=== PATIENT | female | born 1960 | race Caucasian/White ===

== ENCOUNTER 2021-06-11 19:52 | Inpatient (IN) | payer OTHER, SELFPAY ==
[2021-06-11] VITALS (26 sets, daily range): BP systolic 79–125; BP diastolic 49–65; PULSE 89–102; RESP 24–37; TEMP 37.7–38.7; O2SAT 86–97
--- NOTE | ~2021-06-11 | XR_ITS ---
XR chest 1V portable DATE: 06/19/2021 05:46 INDICATION: Covid pneumonia TECHNIQUE: Portable AP chest on 06/19/2021 at 0455 hours COMPARISON: 06/15/2021 portable AP chest 06/11/2021 CTA chest FINDINGS: Heart size is normal. There are patchy diffuse bilateral pulmonary infiltrates which appear mildly improved since 06/15/2021. No pleural effusion or pneumothorax is evident. Diffuse osteopenia. IMPRESSION: Mildly improved bilateral pulmonary infiltrates since 06/15/2021 Reviewed, dictated and finalized at location A. SECURITY SPECIALIST
--- NOTE | ~2021-06-11 | XR_ITS ---
EXAMINATION: XR chest 1V portable DATE: 06/15/2021 05:47 INDICATION: COVID pneumonia TECHNIQUE: frontal view of the chest was obtained. COMPARISON: Chest radiograph dated 06/14/2021 FINDINGS: No significant interval change in patchy airspace opacities throughout both lungs. No pleural effusio n or pneumothorax. The cardiomediastinal silhouette is normal. IMPRESSION: 1. No significant change in diffuse bilateral lung disease consistent with COVID pneumonia. Reviewed, dictated and finalized at location A. SPECIAL EDUCATION TEACHER IMPRESSION: 1. No significant change in diffuse bilateral lung disease consistent with COVI D pneumonia.
--- NOTE | ~2021-06-11 | XR_ITS ---
EXAMINATION: XR chest 1V portable EXAM DATE: 06/14/2021 12:01 INDICATION: COVID-19, SOB . TECHNIQUE: Portable AP frontal chest x-ray was obtained. Comparison is made to prior examination from 06/11/2021. FINDINGS: Diffuse bilateral airspace disease with peripheral predominance, consistent with COVID pneu monia. There may be slightly more confluence compared to prior study. No pneumothorax or pleural effu gennaro. Cardiomediastinal silhouette is normal. There are no osseous abnormalities identified. IMPRESSION: Diffuse COVID pneumonia, slight interval progression. Reviewed, dictated and finalized at location A. MACY SERVICE ASSOCIATE
--- NOTE | ~2021-06-11 | XR_ITS ---
EXAMINATION: XR chest 1V portable INDICATION: Shortness of breath TECHNIQUE: Portable AP chest at 2045 hours COMPARISON: None available FINDINGS: There are patchy opacities throughout all lung zones. There is no pleural effusion or pneum othorax. The cardiomediastinal silhouette is normal. IMPRESSION: 1. Diffuse lung disease in a pattern suggestive of COVID 19 pneumonia. Reviewed, dictated and finalized at location F. GY ADVISOR
--- NOTE | ~2021-06-11 | CT_ITS ---
EXAMINATION: CTA chest PE protocol DATE: 06/12/2021 00:01 INDICATION: Dyspnea. TECHNIQUE: Computed tomography angiography (CTA) of the chest was performed with 100 mL Omnipaque-350 intravenous contrast timed to evaluate the pulmonary arteries. Coronal maximum intensity projection 3D-reconstructions were created by the technologist. Automated exposure control and iterative reconst ruction technique were employed. The dose-length product was 597.52 mGy-cm. COMPARISON: None. FINDINGS: There are patchy airspace opacities and groundglass opacities involving all lobes. A calcif ied right lung nodule and calcified right hilar lymph nodes are consistent with old granulomatous dis ease. No pleural effusion. There is left atrial enlargement of the heart. No pericardial effusion. Th ere is no pulmonary embolus. There is a small sliding hiatal hernia. Calcifications in the spleen are consistent with old granulomatous disease. There is mild thoracic spondylosis. IMPRESSION: 1. No pulmonary embolus. 2. Diffuse lung disease, consistent with COVID-19 pneumonia. Reviewed, dictated and finalized at location B. S ACCOUNT ASSOCIATE
--- NOTE | 2021-06-11 20:36 | ECG_ITS ---
Measurements Intervals [place] Rate: 95 P: 39 DE: 144 QRS: -9 QRSD: 91 T: 28 QT: 336 QTc: 423 Interpretive Statements SINUS RHYTHM MINIMAL Q WAVES- HIGH LATERAL LEADS BORDERLINE T WAVE ABNORMALITY- INFERIOR LEADS BORDERLINE ECG Electronically Signed On 06-12-2021 6:31:04 WIRE BRUSHER by Ge Richmond D.O.
[2021-06-11] MEDS: SODIUM CHLORIDE 0.9% IV 1,000 ML 999 ML IV CONT (21:12)
[2021-06-11] MEDS: ONDANSETRON INJ 4 MG/2 ML VIAL IV PUSH (21:13)
[2021-06-11 21:26] LABS: Basophils Percent Auto 0.2 % (0.2-1.2); Hematocrit 41.8 % (37.0-47.0); Hemoglobin 14.1 g/dL (12.0-15.0); Immature Granulocyte Absolute 0.09 K/mm3 (0.00-0.031); Immature Granulocyte Percent A 1.6 % (0-0.5); Lymphocytes Absolute Auto 0.62 K/mm3 (0.9-3.2); Lymphocytes Percent Auto 11.3 % (18.3-44.2); Mean Corpuscular HGB Conc 33.7 g/dl (32-36); Mean Corpuscular Hemoglobin 32.9 pg (26-34); Mean Corpuscular Volume 97.4 fl (80-100); Mean Platelet Volume 10.1 fl (7.4-10.4); Monocytes Absolute Auto 0.3 K/mm3 (0.1-0.6); Monocytes Percent Auto 4.6 % (2.6-8.5); Neutrophils Absolute Auto 4.5 K/mm3 (1.3-6.7); Neutrophils Percent Auto 82.3 % (45.5-73.1); Platelet Count Result 251 k/mm3 (150-375); Red Blood Count 4.29 M/mm3 (4.2-5.4); Red Cell Distribution Width 12.9 % (11.5-14.5); White Blood Count 5.5 K/mm3 (4.5-10.0)
[2021-06-11 21:35] LABS: Lactic Acid Reflex 1.4 mmol/L (0.7-2.1)
[2021-06-11 21:41] LABS: Prothrombin Time 12.9 Seconds (11.1-14.7)
[2021-06-11 21:42] LABS: Partial Thromboplastin Time 26.8 SECONDS (22.3-36.8)
[2021-06-11 21:45] LABS: D Dimer 1.18 ug/mL (<0.48)
[2021-06-11 22:01] LABS: Alanine Aminotransferase 78 U/L (4-35); Albumin Level 3.6 g/dL (3.5-5.1); Alkaline Phosphatase 242 U/L (38-126); Anion Gap 8 mmol/L (8-16); Aspartate Amino Transferase 165 U/L (14-36); Bilirubin,Total 0.6 mg/dL (0.2-1.3); Blood Urea Nitrogen 18 mg/dL (7-17); Calcium 8.2 mg/dL (8.4-10.2); Carbon Dioxide 32 mmol/L (22-30); Chloride 94 mmol/L (98-107); Estimated CRCL calculation 62 ml/min; Estimated Glomerular Filt Rate 51; Glucose 111 mg/dL (65-110); Potassium 3.5 mmol/L (3.4-5.0); Sodium 134 mmol/L (137-145)
[2021-06-11 22:01] LABS: SARS-CoV-2 RNA PCR Positive
[2021-06-11 22:13] LABS: NT Pro B Type Natriuretic Pept 138 pg/mL (5-100); Troponin I 0.017 ng/mL (0.000-0.034)
--- NOTE | 2021-06-11 22:17 | ED.GENADULT ---
HPI - General Adult General Chief complaint: Shortness of Breath/Dyspnea Stated complaint: N/V Sob Time Seen by Provider: 06/11/21 20:40 History of Present Illness HPI narrative: Patient is a 61-year-old female presents to emergency department with complaint of cough body aches and generalized malaise. Patient states symptoms have been ongoing since reports has not been vaccinated reports has not had previous COVID-19. Patient today noticed that her oxygen levels were about 89% at home. Patient reports that she no prior history of thromboembolic disease the patient reports that she has not been previously tested. Related Data Home Medications Medication Instructions Recorded Confirmed ergocalciferol (vitamin D2) 1,250 1,250 mcg PO WEEKLY 11/14/20 03/06/21 mcg (50,000 unit) capsule fluticasone propionate 50 1 spray INTRANASAL DAILY 11/14/20 03/06/21 mcg/actuation nasal spray,suspension folic acid 1 mg tablet 1 mg PO DAILY 11/14/20 03/06/21 levothyroxine 50 mcg capsule 50 mcg PO DAILY 11/14/20 03/06/21 levothyroxine 75 mcg capsule 75 mcg PO .every other day cap 11/14/20 03/06/21 mecobalamin (vitamin B12) 1,000 1,000 mcg PO DAILY 11/14/20 03/06/21 mcg chewable tablet phentermine 37.5 mg tablet 37.5 mg PO DAILY 11/14/20 03/06/21 potassium chloride 20 mEq 20 meq PO DAILY 02/16/21 03/06/21 tablet,extended release Allergies Allergy/AdvReac Type Severity Reaction Status Date / Time Penicillins Allergy Intermediate Swelling, Verified 02/16/21 15:22 hives, dizziness erythromycin base Allergy Mild Abdominal Verified 02/16/21 15:22 Pain, nausea Sulfa (Sulfonamide Allergy Mild Hives Verified 02/16/21 15:22 Antibiotics) latex Allergy Unknown swelling Verified 02/16/21 15:22 procaine [From Novocain] Allergy Swelling Verified 02/16/21 15:22 Review of Systems Review of Systems: A 10 system review of systems was completed on the patient and is negative except for what is stated in the HPI. Nursing and ancillary documentation was reviewed. FOR[facility]LY [facility] Past Medical History Medical History Acid reflux Anemia Anxiety Hypertension Hypothyroidism In vitro fertilization 1992 Migraine Missed x1 Tubal x1 Vaginal delivery x1 Surgical History Surgical History History of dilation and curettage 1996 History of endometrial ablation 2007 History of laparoscopy x3 Previous section x1 S/P cryotherapy of skin lesion 1985, of cervix [place] teeth extracted 1985 Family History Family History Father Heart problem Acute myocardial infarction Mother Hypertension Grandparent Melanoma Hypertension Depression Heart problem Cerebrovascular accident Sibling Arrhythmia Sibling No problems noted. Social History Social History Smoking status: Never smoker Second hand tobacco smoke exposure: No Alcohol intake: never Substance use: never Substance use type: does not use Additional occupation/education comments: accounting Gender identity (if verbalized by the patient): Female Exam Narrative: GENERAL: Well-appearing, well-nourished, and in no acute distress. HEAD: Normocephalic, atraumatic. EYES: PERRLA and EOMI. ENT: Nares clear, no rhinorrhea or epistaxis. Mucous membranes moist. NECK: Supple. CHEST: Clear to auscultation. No respiratory distress. HEART: Regular rate and rhythm. No murmur heard. Normal peripheral pulses. ABDOMEN: Soft, nontender, nondistended, normal active bowel sounds. EXTREMITIES: Normal range of motion. No edema. SKIN: Warm, dry, no rash. NEURO: No focal deficits. Alert and oriented x3. PSYCH: Normal mood and affect. Course Course E
[2021-06-11] MEDS: DEXAMETHASONE SOD PHOS INJ 4 MG/ML VIAL 6 MG IV PUSH (22:26)
--- NOTE | 2021-06-11 22:36 | PM.IMHP ---
H&P: HPI History of Present Illness Date/Time: 06/11/21 22:36 Chief Complaint: GENERALIZED MALAISE. Narrative: This is a 61-year-old female with past medical history significant for morbid obesity, generalized anxiety disorder, hypertension, hypothyroidism. Patient presented to the emergency room due to generalized malaise, body aches and pains, poor appetite, dry cough, patient tested positive for COVID-19, decided to come to the emergency room because of extreme fatigue, feeling unwell, fevers, chills, at some point patient states that her is in the emergency room as well with similar complaints and has been seen as well. Patient had an oxygen saturation at home of 89%. Preliminary workup in the emergency room was significant for chest x-ray with diffuse bilateral lung infiltrates as well as CT of the chest. Decision has been made to admit the patient for further evaluation, management and treatment. Review of Systems Review of Systems: Generalized malaise, fevers, rigors, low pulse ox, poor appetite Constitutional: Constitutional: Reports chills, Reports fatigue, Reports fever(s), Reports lethargy, Reports malaise, Denies night sweats and Reports poor appetite Eyes: Eyes: Denies change in vision ENT: Denies dysphagia, Denies nasal congestion, Denies nasal discharge, Denies nasal obstruction and Denies odynophagia Cardiovascular: Cardiovascular: Denies chest pain, Denies lightheadedness, Denies radiating jaw, neck or arm pain, Denies palpitations, Denies dyspnea on exertion, Denies orthopnea and Denies paroxysmal nocturnal dyspnea Respiratory: Respiratory: Denies chest congestion, Reports cough, Denies excessive phlegm production and Reports dyspnea Gastrointestinal: Gastrointestinal: Denies abdominal pain, Denies dyspepsia, Denies heartburn, Denies diarrhea, Denies nausea and Denies vomiting Genitourinary: Genitourinary: Denies dysuria and Denies flank pain Musculoskeletal: Musculoskeletal: Reports myalgias Integumentary/Breasts: Skin/Breast: Denies rash Neurologic: Denies abnormal gait, Denies focal weakness, Denies Sensory deficit (Neuro) and Denies paresthesias Psychiatric: Psychiatric: Reports no additional psychiatric complaints and Reports as per HPI Endocrine: Endocrine: Denies cold intolerance, Denies excessive sweating, Denies heat intolerance, Denies polyphagia, Denies polydipsia and Denies palpitations Hematologic/Lymphatic: Hematologic/Lymphatic: Reports no additional hematologic/lymphatic complaints and Reports as per HPI Allergic/Immunologic: Allergic/Immunologic: Reports no additional allergic/immunologic complaints and Reports as per HPI PMFSH Past Medical History Medical History Acid reflux Anemia Anxiety Hypertension Hypothyroidism In vitro fertilization 1992 Migraine Missed x1 Tubal x1 Vaginal delivery x1 Surgical History Surgical History History of dilation and curettage 1996 History of endometrial ablation 2007 History of laparoscopy x3 Previous section x1 S/P cryotherapy of skin lesion 1985, of cervix [place] teeth extracted 1985 Family History Family History Father Heart problem Acute myocardial infarction Mother Hypertension Grandparent Melanoma Hypertension Depression Heart problem Cerebrovascular accident Sibling Arrhythmia Sibling No problems noted. Social History Social History Smoking status: Never smoker Second hand tobacco smoke exposure: No Alcohol intake: never Substance use: never Substance use type: does not use Additional occupation/education comments: accounting Gender identity (if verbalized by the patient): Female Meds Ho
[2021-06-12] VITALS (75 sets, daily range): BP systolic 46–117; BP diastolic 22–94; PULSE 80–97; RESP 13–41; TEMP 36.2–37.1; O2SAT 84–99; BMI 46.7
[2021-06-12] MEDS: REMDESIVIR 200 MG/NS 250 ML 200 MG/250 ML BAG 250 MG IVPB (01:02)
[2021-06-12] MEDS: SODIUM CHLORIDE 0.9% IV 1,000 ML 999 ML IV CONT (03:04)
--- NOTE | 2021-06-12 04:56 | PC.NURSE ---
RT called to request Neb Tx du eto O2 Sat 92% on 3L NC and no Nebs done in ER
[2021-06-12] MEDS: ALBUTEROL SULFATE NEB 2.5 MG/0.5 ML INH 5 MG INHALATION ×2 (05:10→06:59)
[2021-06-12] MEDS: IPRATROPIUM BR 0.02% INH SOLN 0.5 MG/2.5 ML VIAL INHALATION ×4 (05:11→20:22)
[2021-06-12 07:11] LABS: Add Urine Microscopic? YES; Appearance Urine Clear (Clear); Bacteria Urine Trace /hpf; Bilirubin Urine Negative (Negative); Blood Urine Negative (Negative); Color Urine Yellow (Yellow); Glucose Urine UA Negative (Negative); Ketones Urine 1+ mg/dL (Negative); Leukocyte Esterase Ur Negative LEU/UL (Negative); Mucus Urine Rare /lpf; Nitrate Urine Negative (Negative); Protein Urine 1+ mg/dL (Negative); Squamous Epithelial Cell Urine Many /hpf (Few)
[2021-06-12] MEDS: DEXTROSE 5%/0.45% SOD CHL 1,000 ML 85 ML IV CONT (07:16)
[2021-06-12] MEDS: LORazepam INJ (*CRX) 2 MG/ML VIAL 1 MG IV PUSH (07:17)
[2021-06-12 07:20] LABS: Alveolar/Arterial O2 Gradient 223.8 mmHg; Base Excess ABG 0.1 mEq/l (+/-2.0); Fractional Inspired Oxygen 48 %; HCO3 ABG 23.7 mEq/l (22.0-26.0); Oxygen Content ABG 18.1 %vol (16.0-22.0); Oxygen Saturation ABG 96.2 % (95.0-100.0); Oxyhemoglobin 94.5 % THb (90.0-100.0); PCO2 ABG 35.1 mmHg (35.0-45.0); PO2 ABG 78.8 mmHg (80.0-100.0); PO2 FiO2 Ratio Arterial Blood 1.64 %; Total Hemoglobin 13.6 g/dL (12.0-18.0); pH ABG 7.447 (7.350-7.450)
[2021-06-12 07:21] LABS: Device HIGH FLOW NASAL CANN; Modified Allen's Test Pass; Site Drawn LEFT RADIAL
--- NOTE | 2021-06-12 07:22 | PC.NURSE ---
0635- RN assisted pt up to bedside commode to get urine sample, pt became very SOB, RR increased to 45-50 and unable to obtain sat at first, O2 increased to 5L NC, Sat while sitting on commode 82% on 5L NC, PT given time to catch her breathe, walked around the end of the bed to wash her hands and still sats only 82% sitting on the side of the bed. 0645- RN spoke with Dr. Suazo about pt condition and desatting with activity. new orders entered. Pt also c/o headache wrapping around the top of her head 03/12. 0720- headache pain now 12/10 wrapping around the top of head. Pt tolerated Ativan well.
[2021-06-12 10:15] LABS: Alanine Aminotransferase 61 U/L (4-35); Alanine Aminotransferase 63 U/L (4-35); Albumin Level 3.3 g/dL (3.5-5.1); Alkaline Phosphatase 180 U/L (38-126); Anion Gap 9 mmol/L (8-16); Aspartate Amino Transferase 97 U/L (14-36); Bilirubin,Total 0.3 mg/dL (0.2-1.3); Blood Urea Nitrogen 14 mg/dL (7-17); CRP 5.4 mg/dL (<1.0); Calcium 7.7 mg/dL (8.4-10.2); Carbon Dioxide 28 mmol/L (22-30); Chloride 100 mmol/L (98-107); Estimated CRCL calculation 83 ml/min; Estimated Glomerular Filt Rate > 60; Glucose 124 mg/dL (65-110); Lactate Dehydrogenase 1402 U/L (313-618); Potassium 3.2 mmol/L (3.4-5.0); Sodium 137 mmol/L (137-145)
[2021-06-12 10:17] LABS: Prothrombin Time 12.8 Seconds (11.1-14.7)
--- NOTE | 2021-06-12 10:25 | PM.IMPN ---
Progress Note: A&P Assessment and Plan (1) Acute respiratory failure with hypoxia: Code(s): J96.01 - Acute respiratory failure with hypoxia Status: Acute Assessment and Plan: Secondary to COVID-19 pneumonia. Reports O2 sats down to 70% at home. Hypoxic down to 84% in ED Continue supplemental oxygen as needed with goal saturations 92% or above Currently requiring 6 L per high-flow nasal cannula and maintaining adequate O2 saturations No PE on CTA (2) 2019 novel coronavirus-infected pneumonia (NCIP): Code(s): U07.1 - COVID-19; J12.82 - Pneumonia due to coronavirus disease 2019 Status: Acute Assessment and Plan: Symptom onset 06/02/2022. Positive PCR test on 06/11/2021. CXR shows diffuse lung disease consistent with COVID 19 pneumonia Continue isolation precautions Continue dexamethasone and remdesivir #2 today. Monitor LFTs. ALT 63 Consider addition of baricitinib if worsening oxygen demand Continue levofloxacin for secondary bacterial coverage Supportive care to include bronchodilators, expectorants, antipyretics, incentive spirometry Monitor inflammatory markers Patient has not received vaccination for COVID-19 (3) COURTNEY (acute kidney injury): Code(s): N17.9 - Acute kidney failure, unspecified Status: Acute Assessment and Plan: Resolved. Creatinine mildly elevated on presentation at 1.1 Likely prerenal and resolved with gentle IV fluids Creatinine 0.8 today Okay to discontinue IV fluids as patient is tolerating oral intake. Avoid overhydration given respiratory illness (4) Hypertension: Qualifiers: Hypertension type: unspecified Qualified Code(s): I10 - Essential (primary) hypertension Code(s): I10 - Essential (primary) hypertension Status: Acute Assessment and Plan: Blood pressure reviewed and has been controlled. Last BP 100/60 Resume home antihypertensives once medications are finalized Monitor blood pressure trends (5) Hypothyroidism: Qualifiers: Hypothyroidism type: unspecified Qualified Code(s): E03.9 - Hypothyroidism, unspecified Code(s): E03.9 - Hypothyroidism, unspecified Status: Acute Assessment and Plan: Will check TSH Resume levothyroxine once finalized (6) Electrolyte abnormality: Code(s): E87.8 - Other disorders of electrolyte and fluid balance, not elsewhere classified Status: Acute Assessment and Plan: Electrolytes reviewed Hypokalemia: Potassium was 3.2. Administer 20 mEq p.o. KCl and continue to monitor BMP Hypocalcemia: Calcium levels improved to 8.3 when corrected for albumin Subjective Date/time seen: 06/12/21 10:25 Interval history: Date of service: 06/12/2021 Zandra Mireles is a 61-year-old female with a history hypertension and hypothyroidism who is seen in follow-up for COVID-19 pneumonia. She 1st started to develop symptoms on 06/01/2021. Symptoms started with a headache and then she developed cough, shortness of breath, and decreased appetite. She has not been able to eat much of anything over the past week. She stated at home her oxygen saturations dropped to 70% and she felt she needed to seek medical care at that time. Today, she is still feeling short of breath but states that she is starting to breathe a little better with the high-flow nasal cannula. She got up to walk to the commode earlier in noted that her O2 sats dropped again and she felt quite short of breath. Endorses dyspnea with exertion and with conversation. Endorses a cough productive of yellow sputum. She feels very weak and dizzy. She denies nausea, vomiting, or diarrhea. She is keeping down fluids. Still with poor appetite but is trying to eat a small amount. Denies abdominal pain. No fever or chills. Denies chest pain or palpitations. Review of Systems Review of Systems: All systems reviewed & are unremarkable except as noted i
[2021-06-12 10:29] LABS: Hematocrit 36.6 % (37.0-47.0); Hemoglobin 12.4 g/dL (12.0-15.0); Mean Corpuscular HGB Conc 33.9 g/dl (32-36); Mean Corpuscular Hemoglobin 32.7 pg (26-34); Mean Corpuscular Volume 96.6 fl (80-100); Mean Platelet Volume 10.4 fl (7.4-10.4); Platelet Count Result 231 k/mm3 (150-375); Red Blood Count 3.79 M/mm3 (4.2-5.4); Red Cell Distribution Width 12.7 % (11.5-14.5); White Blood Count 3.6 K/mm3 (4.5-10.0)
[2021-06-12 11:00] LABS: Basophils Percent Auto 0.5 % (0.2-1.2); Hematocrit 36.6 % (37.0-47.0); Hemoglobin 12.6 g/dL (12.0-15.0); Immature Granulocyte Percent A 2.7 % (0-0.5); Lymphocytes Absolute Auto 0.52 K/mm3 (0.9-3.2); Lymphocytes Percent Auto 13.9 % (18.3-44.2); Mean Corpuscular HGB Conc 34.4 g/dl (32-36); Mean Corpuscular Hemoglobin 33.2 pg (26-34); Mean Corpuscular Volume 96.3 fl (80-100); Monocytes Absolute Auto 0.2 K/mm3 (0.1-0.6); Monocytes Percent Auto 4.8 % (2.6-8.5); Neutrophils Absolute Auto 2.9 K/mm3 (1.3-6.7); Neutrophils Percent Auto 78.1 % (45.5-73.1); Platelet Count Result 242 k/mm3 (150-375); Red Cell Distribution Width 12.8 % (11.5-14.5); White Blood Count 3.7 K/mm3 (4.5-10.0)
[2021-06-12 11:12] LABS: Alanine Aminotransferase 63 U/L (4-35); Aspartate Amino Transferase 100 U/L (14-36); Estimated CRCL calculation 83 ml/min; Estimated Glomerular Filt Rate > 60
[2021-06-12] MEDS: ENOXAPARIN 40 MG/0.4 ML SYRINGE SUB-Q (11:34)
[2021-06-12] MEDS: guaiFENesin 12 HR 600 MG TABCR PO ×2 (11:35→21:03)
[2021-06-12] MEDS: POTASSIUM CHLORIDE 20 MEQ TABLET PO (11:35)
[2021-06-12] MEDS: LEVOTHYROXINE SODIUM 75 MCG TABLET PO (13:04)
[2021-06-12] MEDS: buPROPion HCL XL (24 HR) 150 MG TABCR PO (13:05)
[2021-06-12] MEDS: ACETAMINOPHEN 325 MG TABLET 650 MG PO ×2 (13:10→21:03)
--- NOTE | 2021-06-12 13:26 | PC.NURSE ---
Updated daughter on patient condition and length of stay.
--- NOTE | 2021-06-12 17:20 | PC.NURSE ---
Report to pete garcia.
[2021-06-12] MEDS: REMDESIVIR 100 MG/NS 250 ML 100 MG/250 ML BAG 250 MG IVPB (21:04)
[2021-06-13] VITALS (22 sets, daily range): BP systolic 110–134; BP diastolic 65–71; PULSE 74–89; RESP 16–28; TEMP 36.1–36.6; O2SAT 90–99; BMI 46.7
[2021-06-13] MEDS: IPRATROPIUM BR 0.02% INH SOLN 0.5 MG/2.5 ML VIAL INHALATION ×4 (02:19→20:22)
[2021-06-13 05:23] LABS: Basophils Percent Auto 0.3 % (0.2-1.2); Hematocrit 34.9 % (37.0-47.0); Hemoglobin 11.8 g/dL (12.0-15.0); Immature Granulocyte Absolute 0.21 K/mm3 (0.00-0.031); Immature Granulocyte Percent A 3.4 % (0-0.5); Lymphocytes Percent Auto 14.5 % (18.3-44.2); Mean Corpuscular HGB Conc 33.8 g/dl (32-36); Mean Corpuscular Hemoglobin 32.5 pg (26-34); Mean Corpuscular Volume 96.1 fl (80-100); Mean Platelet Volume 10.5 fl (7.4-10.4); Monocytes Absolute Auto 0.5 K/mm3 (0.1-0.6); Monocytes Percent Auto 8.1 % (2.6-8.5); Neutrophils Absolute Auto 4.6 K/mm3 (1.3-6.7); Neutrophils Percent Auto 73.7 % (45.5-73.1); Platelet Count Result 281 k/mm3 (150-375); Red Blood Count 3.63 M/mm3 (4.2-5.4); Red Cell Distribution Width 12.7 % (11.5-14.5); White Blood Count 6.2 K/mm3 (4.5-10.0)
[2021-06-13 05:46] LABS: Alanine Aminotransferase 90 U/L (4-35); Albumin Level 2.9 g/dL (3.5-5.1); Alkaline Phosphatase 182 U/L (38-126); Anion Gap 7 mmol/L (8-16); Aspartate Amino Transferase 149 U/L (14-36); Bilirubin,Total 0.3 mg/dL (0.2-1.3); Blood Urea Nitrogen 17 mg/dL (7-17); CRP 3.1 mg/dL (<1.0); Calcium 7.8 mg/dL (8.4-10.2); Carbon Dioxide 26 mmol/L (22-30); Chloride 103 mmol/L (98-107); Estimated CRCL calculation 97 ml/min; Estimated Glomerular Filt Rate > 60; Glucose 113 mg/dL (65-110); Lactate Dehydrogenase 1447 U/L (313-618); Potassium 3.7 mmol/L (3.4-5.0); Sodium 136 mmol/L (137-145)
[2021-06-13 05:59] LABS: INR 1.1; Prothrombin Time 13.8 Seconds (11.1-14.7)
[2021-06-13] MEDS: LEVOTHYROXINE SODIUM 50 MCG TABLET PO (06:39)
[2021-06-13 06:53] LABS: Thyroid Stimulating Hormone Reflex 0.666 uIU/mL (0.465-4.68)
[2021-06-13] MEDS: amLODIPine BESYLATE 5 MG TABLET 10 MG PO (08:51)
[2021-06-13] MEDS: buPROPion HCL XL (24 HR) 150 MG TABCR PO (08:51)
[2021-06-13] MEDS: ENOXAPARIN 40 MG/0.4 ML SYRINGE SUB-Q (08:51)
[2021-06-13] MEDS: CYANOCOBALAMIN 1,000 MCG TABLET 1000 MCG PO (08:51)
[2021-06-13] MEDS: FOLIC ACID 1 MG TABLET PO (08:51)
[2021-06-13] MEDS: guaiFENesin 12 HR 600 MG TABCR PO ×2 (08:52→20:53)
[2021-06-13] MEDS: lisinopriL 5 MG TABLET PO (08:52)
[2021-06-13] MEDS: ACETAMINOPHEN 325 MG TABLET 650 MG PO (09:10)
--- NOTE | 2021-06-13 10:46 | PM.IMPN ---
Progress Note: A&P Assessment and Plan (1) Acute respiratory failure with hypoxia: Code(s): J96.01 - Acute respiratory failure with hypoxia Status: Acute Assessment and Plan: Secondary to COVID-19 pneumonia. Reports O2 sats down to 70% at home. Hypoxic down to 84% on presentation Continue supplemental oxygen as needed with goal saturations 92% or above Currently requiring 7 L per high-flow nasal cannula and maintaining adequate O2 saturations. No PE on CTA (2) 2019 novel coronavirus-infected pneumonia (NCIP): Code(s): U07.1 - COVID-19; J12.82 - Pneumonia due to coronavirus disease 2019 Status: Acute Assessment and Plan: Symptom onset 06/02/2022. Positive PCR test on 06/11/2021. CXR shows diffuse lung disease consistent with COVID 19 pneumonia Continue isolation precautions Continue dexamethasone and remdesivir #3 today. Monitor LFTs. ALT 90 Consider addition of baricitinib if worsening oxygen demand Continue levofloxacin for secondary bacterial coverage given onset of illness and clinical symptoms. Will check a sputum culture. Supportive care to include bronchodilators, expectorants, antipyretics, incentive spirometry Monitor inflammatory markers Patient has not received vaccination for COVID-19 (3) COURTNEY (acute kidney injury): Code(s): N17.9 - Acute kidney failure, unspecified Status: Acute Assessment and Plan: Resolved. Creatinine mildly elevated on presentation at 1.1 Likely prerenal and resolved with gentle IV fluids which have been discontinued as she is tolerating oral intake Creatinine 0.7 today (4) Hypertension: Qualifiers: Hypertension type: unspecified Qualified Code(s): I10 - Essential (primary) hypertension Code(s): I10 - Essential (primary) hypertension Status: Acute Assessment and Plan: Blood pressure reviewed and has been controlled. Last BP 122/69 Continue home amlodipine and lisinopril Monitor blood pressure trends (5) Hypothyroidism: Qualifiers: Hypothyroidism type: unspecified Qualified Code(s): E03.9 - Hypothyroidism, unspecified Code(s): E03.9 - Hypothyroidism, unspecified Status: Acute Assessment and Plan: TSH is within normal limits Continue levothyroxine (6) Electrolyte abnormality: Code(s): E87.8 - Other disorders of electrolyte and fluid balance, not elsewhere classified Status: Acute Assessment and Plan: Electrolytes reviewed Hypokalemia: Resolved. Potassium 3.7 today. Potassium was 3.2. Administer 20 mEq p.o. KCl and continue to monitor BMP Hypocalcemia: Normal when corrected for albumin levels Subjective Date/time seen: 06/13/21 10:46 Interval history: Date of service: 06/13/2021 Zandra Mireles is a 61-year-old female with a history hypertension and hypothyroidism who is seen in follow-up for COVID-19 pneumonia. She feels about the same today. She had a hard time sleeping last night. She said her oxygen tubing was coming out of her nose when she was sleeping and she was worrying about this. She did not feel more short of breath when sleeping and did not notice a major change in her symptoms when her oxygen was accidentally off. She does endorse cough productive of yellowish sputum. She feels very weak and even small amounts of activity cause her to become more short of breath. She now has a Little catheter as getting up to the commode was causing her to desaturate. No issues with her Little. She has not had a bowel movement. She still has decreased appetite but did get most of her food down. No nausea or vomiting. She denies dizziness or lightheadedness. She does complain of a bitemporal headache for which she had just taken some Tylenol and was waiting to see if this was going to help. She denies fever or chills. She has no additional concerns at this time Review of Systems Review of Systems: All toni
[2021-06-13] MEDS: ACETAMINOPHEN/ASPIRIN/CAFFEINE 250-250-65 MG TABLET 1 TABLET PO (16:29)
[2021-06-13] MEDS: HYDROcodone/acetaminophen (*CRX) 5-325 MG TABLET 1 TAB PO (20:53)
[2021-06-13] MEDS: REMDESIVIR 100 MG/NS 250 ML 100 MG/250 ML BAG 250 MG IVPB (20:54)
[2021-06-14] VITALS (21 sets, daily range): BP systolic 117–143; BP diastolic 61–77; PULSE 68–86; RESP 20–32; TEMP 36.2–37.2; O2SAT 87–95
--- NOTE | 2021-06-14 03:36 | PCRCNOTE ---
Nebulizer treatment scheduled for 06/14/21 at 02:00 not administered. RT not available during administration window.
[2021-06-14 05:34] LABS: Hematocrit 37.9 % (37.0-47.0); Hemoglobin 12.4 g/dL (12.0-15.0); Mean Corpuscular HGB Conc 32.7 g/dl (32-36); Mean Corpuscular Hemoglobin 32.4 pg (26-34); Mean Platelet Volume 10.6 fl (7.4-10.4); Platelet Count Result 328 k/mm3 (150-375); Red Blood Count 3.83 M/mm3 (4.2-5.4); Red Cell Distribution Width 12.8 % (11.5-14.5); White Blood Count 6.9 K/mm3 (4.5-10.0)
[2021-06-14 05:47] LABS: Alanine Aminotransferase 74 U/L (4-35); Albumin Level 2.7 g/dL (3.5-5.1); Alkaline Phosphatase 172 U/L (38-126); Anion Gap 5 mmol/L (8-16); Aspartate Amino Transferase 82 U/L (14-36); Bilirubin,Total 0.5 mg/dL (0.2-1.3); Blood Urea Nitrogen 22 mg/dL (7-17); CRP 1.6 mg/dL (<1.0); Calcium 7.8 mg/dL (8.4-10.2); Carbon Dioxide 27 mmol/L (22-30); Chloride 101 mmol/L (98-107); Estimated CRCL calculation 97 ml/min; Estimated Glomerular Filt Rate > 60; Glucose 101 mg/dL (65-110); Lactate Dehydrogenase 440 U/L (313-618); Potassium 3.5 mmol/L (3.4-5.0); Sodium 133 mmol/L (137-145)
[2021-06-14 05:51] LABS: Prothrombin Time 13.1 Seconds (11.1-14.7)
[2021-06-14] MEDS: LEVOTHYROXINE SODIUM 75 MCG TABLET PO (06:45)
[2021-06-14] MEDS: HYDROcodone/acetaminophen (*CRX) 5-325 MG TABLET 1 TAB PO ×3 (06:46→18:42)
[2021-06-14 06:59] LABS: Band Neutrophils Percent 3 % (0-6); Eosinophils Absolute Manual 0.06 K/mm3 (0.02-0.5); Eosinophils Percent Manual 1 % (0-4); Lymphocytes Absolute Manual 0.89 K/mm3 (1.1-4.5); Monocytes Absolute Manual 0.62 K/mm3 (0.1-0.90); Monocytes Percent Manual 9 % (3-9); Neutrophils Absolute Manual 5.31 K/mm3 (1.7-7.2); Neutrophils Percent Manual 74 % (46-73); Platelet Estimate Adequate (Adequate); Total Cells Counted 100
[2021-06-14] MEDS: IPRATROPIUM BR 0.02% INH SOLN 0.5 MG/2.5 ML VIAL INHALATION ×3 (08:18→21:08)
[2021-06-14] MEDS: ENOXAPARIN 40 MG/0.4 ML SYRINGE SUB-Q (10:36)
[2021-06-14] MEDS: ACETAMINOPHEN/ASPIRIN/CAFFEINE 250-250-65 MG TABLET 1 TABLET PO (10:37)
[2021-06-14] MEDS: amLODIPine BESYLATE 5 MG TABLET 10 MG PO (10:42)
[2021-06-14] MEDS: lisinopriL 5 MG TABLET PO (10:42)
[2021-06-14] MEDS: buPROPion HCL XL (24 HR) 150 MG TABCR PO (10:42)
[2021-06-14] MEDS: CYANOCOBALAMIN 1,000 MCG TABLET 1000 MCG PO (10:42)
[2021-06-14] MEDS: guaiFENesin 12 HR 600 MG TABCR PO ×2 (10:42→21:15)
[2021-06-14] MEDS: FOLIC ACID 1 MG TABLET PO (10:43)
[2021-06-14 11:52] LABS: Alveolar/Arterial O2 Gradient 465.9 mmHg; Base Excess ABG 3.6 mEq/l (+/-2.0); Fractional Inspired Oxygen 80 %; HCO3 ABG 27.3 mEq/l (22.0-26.0); Oxygen Content ABG 17.6 %vol (16.0-22.0); Oxygen Saturation ABG 93.7 % (95.0-100.0); Oxyhemoglobin 91.9 % THb (90.0-100.0); PCO2 ABG 38.5 mmHg (35.0-45.0); PO2 ABG 64.1 mmHg (80.0-100.0); Total Hemoglobin 13.6 g/dL (12.0-18.0); pH ABG 7.469 (7.350-7.450)
[2021-06-14 11:53] LABS: Site Drawn LEFT RADIAL
[2021-06-14 11:54] LABS: Device HIGH FLOW NASAL CANN; Modified Allen's Test Pass
[2021-06-14] MEDS: carisoprodoL (*CRX) 350 MG TABLET PO ×3 (12:53→21:15)
--- NOTE | 2021-06-14 16:15 | PCRCNOTE ---
Spoke with Pt. about wearing one of our CPAP units at night; Pt. declined. Pt. states she quit wearing hers at home about the time she got sick because she felt like she could not breathe with it on. Asked the Pt. to let us know if she changed her mind and wanted to wear one.
--- NOTE | 2021-06-14 20:25 | PM.IMPN ---
Progress Note: A&P Assessment and Plan (1) Electrolyte abnormality: Code(s): E87.8 - Other disorders of electrolyte and fluid balance, not elsewhere classified Status: Acute (2) COURTNEY (acute kidney injury): Code(s): N17.9 - Acute kidney failure, unspecified Status: Acute (3) Morbid obesity with BMI of 40.0-44.9, adult: Code(s): E66.01 - Morbid (severe) obesity due to excess calories; Z68.41 - Body mass index [BMI] 40.0-44.9, adult Status: Acute (4) Acute respiratory failure with hypoxia: Code(s): J96.01 - Acute respiratory failure with hypoxia Status: Acute (5) Pneumonia due to COVID-19 virus: Code(s): U07.1 - COVID-19; J12.82 - Pneumonia due to coronavirus disease 2019 Status: Acute (6) Hypothyroidism: Qualifiers: Hypothyroidism type: unspecified Qualified Code(s): E03.9 - Hypothyroidism, unspecified Code(s): E03.9 - Hypothyroidism, unspecified Status: Acute (7) Hypertension: Qualifiers: Hypertension type: unspecified Qualified Code(s): I10 - Essential (primary) hypertension Code(s): I10 - Essential (primary) hypertension Status: Acute Assessment and Plan: 06/12/21 Secondary to COVID-19 pneumonia. Reports O2 sats down to 70% at home. Hypoxic down to 84% on presentation Continue supplemental oxygen as needed with goal saturations 92% or above Currently requiring 7 L per high-flow nasal cannula and maintaining adequate O2 saturations. No PE on CTA Symptom onset 06/02/2022. Positive PCR test on 06/11/2021. CXR shows diffuse lung disease consistent with COVID 19 pneumonia Continue isolation precautions Continue dexamethasone and remdesivir #3 today. Monitor LFTs. ALT 90 Consider addition of baricitinib if worsening oxygen demand Continue levofloxacin for secondary bacterial coverage given onset of illness and clinical symptoms. Will check a sputum culture. Supportive care to include bronchodilators, expectorants, antipyretics, incentive spirometry Monitor inflammatory markers Patient has not received vaccination for COVID-19 06/14/21 remains on 12L HF cont current care trend inflam markers CXR in am SOMA PRN OOB as tolerated Subjective Date/time seen: 06/14/21 20:25 doing well this afternoon only complaint is REILLY Exam Narrative: GEN: NAD, AAOx3, cooperative HEENT: NCAT, MMM, EOMI Neck: no JVD Heart: S1S2 RRR Lungs: symmetric chest rise, no use of accessory muscles, currently on 15 L high-flow nasal cannula Abd: soft, NT, ND, bowel sounds normoactive Ext: moves all, no cyanosis, no clubbing, no edema Neuro: Cranial nerves intact, no focal neurological deficits appreciated Psych: Mood and affect congruent Objective Data Vital Signs Vital Signs: Vital Signs - 24 hr 06/13/21 20:36 06/13/21 21:37 06/13/21 23:47 Temperature 97.6 F Pulse Rate 81 82 80 Respiratory Rate 22 H Blood Pressure 134/71 Pulse Oximetry 90 06/14/21 00:00 06/14/21 02:00 06/14/21 04:00 Temperature 97.8 F Pulse Rate 80 78 80 Respiratory Rate 22 H 20 Blood Pressure 117/61 Pulse Oximetry 91 92 06/14/21 06:00 06/14/21 08:00 06/14/21 08:19 Temperature 97.1 F L Pulse Rate 78 83 Respiratory Rate 20 Blood Pressure Pulse Oximetry 94 87 L 06/14/21 08:21 06/14/21 08:34 06/14/21 08:43 Temperature Pulse Rate 77 77 Respiratory Rate 22 H 22 H Blood Pressure Pulse Oximetry 91 88 L 91 06/14/21 10:00 06/14/21 11:59 06/14/21 12:00 Temperature 97.8 F Pulse Rate 79 70 73 Respiratory Rate 24 H Blood Pressure 143/77 H Pulse Oximetry 94 94 06/14/21 13:31 06/14/21 13:42 06/14/21 14:00 Temperature Pulse Rate 76 68 82 Respiratory Rate 20 20 Blood Pressure Pulse Oximetry 06/14/21 16:00 06/14/21 18:00 Temperature 98.9 F Pulse Rate 79 68 Respiratory Rate 32 H Blood Pressure 129/71 Pulse Oximetry 91 Intake/Output Intake/Output: Intake &
[2021-06-14] MEDS: REMDESIVIR 100 MG/NS 250 ML 100 MG/250 ML BAG 250 MG IVPB (21:14)
[2021-06-15] VITALS (24 sets, daily range): BP systolic 100–123; BP diastolic 60–88; PULSE 61–89; RESP 16–22; TEMP 36.5–36.7; O2SAT 90–97
[2021-06-15] MEDS: IPRATROPIUM BR 0.02% INH SOLN 0.5 MG/2.5 ML VIAL INHALATION ×4 (02:27→19:58)
[2021-06-15 05:04] LABS: Basophils Absolute Auto 0.1 K/mm3 (0.0-0.1); Basophils Percent Auto 0.9 % (0.2-1.2); Hematocrit 38.3 % (37.0-47.0); Hemoglobin 12.9 g/dL (12.0-15.0); Immature Granulocyte Absolute 0.36 K/mm3 (0.00-0.031); Immature Granulocyte Percent A 5.4 % (0-0.5); Lymphocytes Absolute Auto 1.21 K/mm3 (0.9-3.2); Lymphocytes Percent Auto 18.2 % (18.3-44.2); Mean Corpuscular HGB Conc 33.7 g/dl (32-36); Mean Corpuscular Hemoglobin 32.7 pg (26-34); Mean Platelet Volume 10.3 fl (7.4-10.4); Monocytes Absolute Auto 0.8 K/mm3 (0.1-0.6); Monocytes Percent Auto 11.3 % (2.6-8.5); Neutrophils Absolute Auto 4.3 K/mm3 (1.3-6.7); Neutrophils Percent Auto 64.2 % (45.5-73.1); Platelet Count Result 397 k/mm3 (150-375); Red Blood Count 3.95 M/mm3 (4.2-5.4); Red Cell Distribution Width 12.5 % (11.5-14.5); White Blood Count 6.6 K/mm3 (4.5-10.0)
[2021-06-15 05:16] LABS: INR 1.1; Prothrombin Time 13.7 Seconds (11.1-14.7)
[2021-06-15 05:19] LABS: Alanine Aminotransferase 66 U/L (4-35); Albumin Level 2.8 g/dL (3.5-5.1); Alkaline Phosphatase 165 U/L (38-126); Anion Gap 7 mmol/L (8-16); Aspartate Amino Transferase 58 U/L (14-36); Bilirubin,Total 0.4 mg/dL (0.2-1.3); Blood Urea Nitrogen 21 mg/dL (7-17); CRP 1.1 mg/dL (<1.0); Calcium 7.9 mg/dL (8.4-10.2); Carbon Dioxide 28 mmol/L (22-30); Chloride 99 mmol/L (98-107); Estimated CRCL calculation 97 ml/min; Estimated Glomerular Filt Rate > 60; Glucose 102 mg/dL (65-110); Magnesium 2.2 mg/dL (1.6-2.3); Potassium 3.8 mmol/L (3.4-5.0); Sodium 134 mmol/L (137-145)
[2021-06-15 05:20] LABS: Base Excess ABG 3.1 mEq/l (+/-2.0); Carboxyhemoglobin 0.3 % THb (0-2.0); Device HIGH FLOW NASAL CANN; Fractional Inspired Oxygen 80 %; HCO3 ABG 26.7 mEq/l (22.0-26.0); Methemoglobin ABG 0.2 %THb (0-1.5); Modified Allen's Test Pass; Oxygen Content ABG 17.4 %vol (16.0-22.0); Oxygen Saturation ABG 91.5 % (95.0-100.0); PCO2 ABG 37.4 mmHg (35.0-45.0); PO2 ABG 57.1 mmHg (80.0-100.0); PO2 FiO2 Ratio Arterial Blood 0.71 %; Reduced Hemoglobin 9.5 %THb (0-5.0); Site Drawn LEFT RADIAL; Total Hemoglobin 13.8 g/dL (12.0-18.0); pH ABG 7.471 (7.350-7.450)
[2021-06-15 05:30] LABS: Atypical Lymphocytes Present; Platelet Estimate Adequate (Adequate)
[2021-06-15] MEDS: LEVOTHYROXINE SODIUM 50 MCG TABLET PO (06:49)
[2021-06-15] MEDS: carisoprodoL (*CRX) 350 MG TABLET PO ×4 (08:57→20:56)
[2021-06-15] MEDS: ENOXAPARIN 40 MG/0.4 ML SYRINGE SUB-Q (08:57)
[2021-06-15] MEDS: ACETAMINOPHEN/ASPIRIN/CAFFEINE 250-250-65 MG TABLET 1 TABLET PO (08:58)
[2021-06-15] MEDS: buPROPion HCL XL (24 HR) 150 MG TABCR PO (08:58)
[2021-06-15] MEDS: guaiFENesin 12 HR 600 MG TABCR PO ×2 (08:59→20:56)
[2021-06-15] MEDS: CYANOCOBALAMIN 1,000 MCG TABLET 1000 MCG PO (08:59)
[2021-06-15] MEDS: FOLIC ACID 1 MG TABLET PO (08:59)
[2021-06-15] MEDS: amLODIPine BESYLATE 5 MG TABLET 10 MG PO (08:59)
[2021-06-15] MEDS: lisinopriL 5 MG TABLET PO (08:59)
[2021-06-15] MEDS: PANTOPRAZOLE 40 MG TABLET PO (13:01)
[2021-06-15] MEDS: HYDROcodone/acetaminophen (*CRX) 5-325 MG TABLET 1 TAB PO ×2 (13:01→20:57)
--- NOTE | 2021-06-15 17:16 | PM.IMPN ---
Progress Note: A&P Assessment and Plan (1) Electrolyte abnormality: Code(s): E87.8 - Other disorders of electrolyte and fluid balance, not elsewhere classified Status: Acute (2) COURTNEY (acute kidney injury): Code(s): N17.9 - Acute kidney failure, unspecified Status: Acute (3) Morbid obesity with BMI of 40.0-44.9, adult: Code(s): E66.01 - Morbid (severe) obesity due to excess calories; Z68.41 - Body mass index [BMI] 40.0-44.9, adult Status: Acute (4) Acute respiratory failure with hypoxia: Code(s): J96.01 - Acute respiratory failure with hypoxia Status: Acute (5) Pneumonia due to COVID-19 virus: Code(s): U07.1 - COVID-19; J12.82 - Pneumonia due to coronavirus disease 2019 Status: Acute (6) Hypothyroidism: Qualifiers: Hypothyroidism type: unspecified Qualified Code(s): E03.9 - Hypothyroidism, unspecified Code(s): E03.9 - Hypothyroidism, unspecified Status: Acute (7) Hypertension: Qualifiers: Hypertension type: unspecified Qualified Code(s): I10 - Essential (primary) hypertension Code(s): I10 - Essential (primary) hypertension Status: Acute Assessment and Plan: 06/12/21 Secondary to COVID-19 pneumonia. Reports O2 sats down to 70% at home. Hypoxic down to 84% on presentation Continue supplemental oxygen as needed with goal saturations 92% or above Currently requiring 7 L per high-flow nasal cannula and maintaining adequate O2 saturations. No PE on CTA Symptom onset 06/02/2022. Positive PCR test on 06/11/2021. CXR shows diffuse lung disease consistent with COVID 19 pneumonia Continue isolation precautions Continue dexamethasone and remdesivir #3 today. Monitor LFTs. ALT 90 Consider addition of baricitinib if worsening oxygen demand Continue levofloxacin for secondary bacterial coverage given onset of illness and clinical symptoms. Will check a sputum culture. Supportive care to include bronchodilators, expectorants, antipyretics, incentive spirometry Monitor inflammatory markers Patient has not received vaccination for COVID-19 06/14/21 remains on 15L HF cont current care trend inflam markers CXR in am SOMA PRN OOB as tolerated 01/12/22 pt doing ok cont to complain of REILLY soma ordered cont resp support cont COVID tx pulm recs appreciated Subjective Date/time seen: 06/15/21 17:16 REILLY somewhat improved w Cuco, still on 15L, reports decline in appetite Exam Narrative: GEN: NAD, AAOx3, cooperative HEENT: NCAT, MMM, EOMI Neck: no JVD Heart: S1S2 RRR Lungs: symmetric chest rise, no use of accessory muscles, currently on 15 L high-flow nasal cannula Abd: soft, NT, ND, bowel sounds normoactive Ext: moves all, no cyanosis, no clubbing, no edema Neuro: Cranial nerves intact, no focal neurological deficits appreciated Psych: Mood and affect congruent Objective Data Vital Signs Vital Signs: Vital Signs - 24 hr 06/14/21 18:00 06/14/21 20:00 06/14/21 21:10 Temperature 97.6 F Pulse Rate 68 82 86 Respiratory Rate 20 22 H Blood Pressure 136/68 Pulse Oximetry 92 92 06/14/21 21:18 06/14/21 21:41 06/15/21 00:00 Temperature 98.0 F Pulse Rate 84 80 75 Respiratory Rate 20 22 H Blood Pressure 120/70 Pulse Oximetry 90 06/15/21 02:00 06/15/21 02:29 06/15/21 02:36 Temperature Pulse Rate 83 79 69 Respiratory Rate 20 20 Blood Pressure Pulse Oximetry 06/15/21 04:00 06/15/21 06:00 06/15/21 08:00 Temperature 97.7 F 97.8 F Pulse Rate 83 84 73 Respiratory Rate 20 16 Blood Pressure 103/88 123/66 Pulse Oximetry 97 94 06/15/21 09:10 06/15/21 09:27 06/15/21 10:00 Temperature Pulse Rate 77 78 78 Respiratory Rate 20 20 Blood Pressure Pulse Oximetry 94 06/15/21 11:59 06/15/21 12:00 06/15/21 13:19 Temperature 97.8 F Pulse Rate 82 87 84 Respiratory Rate 22 H 20 Blood Pressure 100/66 Pulse Oximetry 94 96 06/15/21 13:32 06/15/21
[2021-06-15] MEDS: REMDESIVIR 100 MG/NS 250 ML 100 MG/250 ML BAG 250 MG IVPB (20:57)
[2021-06-16] VITALS (20 sets, daily range): BP systolic 103–123; BP diastolic 56–69; PULSE 64–91; RESP 20–24; TEMP 36.2–37.3; O2SAT 92–100
[2021-06-16] MEDS: IPRATROPIUM BR 0.02% INH SOLN 0.5 MG/2.5 ML VIAL INHALATION ×4 (01:57→20:57)
[2021-06-16] MEDS: HYDROcodone/acetaminophen (*CRX) 5-325 MG TABLET 1 TAB PO (04:02)
[2021-06-16 05:29] LABS: Basophils Absolute Auto 0.1 K/mm3 (0.0-0.1); Basophils Percent Auto 0.8 % (0.2-1.2); Eosinophils Percent Auto 0.1 % (0-4.4); Hematocrit 37.9 % (37.0-47.0); Hemoglobin 12.8 g/dL (12.0-15.0); Immature Granulocyte Percent A 4.6 % (0-0.5); Lymphocytes Absolute Auto 2.08 K/mm3 (0.9-3.2); Mean Corpuscular HGB Conc 33.8 g/dl (32-36); Mean Corpuscular Hemoglobin 32.7 pg (26-34); Mean Corpuscular Volume 96.9 fl (80-100); Mean Platelet Volume 10.2 fl (7.4-10.4); Monocytes Absolute Auto 0.9 K/mm3 (0.1-0.6); Monocytes Percent Auto 10.7 % (2.6-8.5); Neutrophils Absolute Auto 5.2 K/mm3 (1.3-6.7); Neutrophils Percent Auto 59.8 % (45.5-73.1); Platelet Count Result 439 k/mm3 (150-375); Red Blood Count 3.91 M/mm3 (4.2-5.4); Red Cell Distribution Width 12.8 % (11.5-14.5); White Blood Count 8.7 K/mm3 (4.5-10.0)
[2021-06-16] MEDS: LEVOTHYROXINE SODIUM 75 MCG TABLET PO (05:31)
[2021-06-16 05:44] LABS: Alanine Aminotransferase 72 U/L (4-35); Aspartate Amino Transferase 68 U/L (14-36); Estimated CRCL calculation 96 ml/min; Estimated Glomerular Filt Rate > 60
[2021-06-16] MEDS: CYANOCOBALAMIN 1,000 MCG TABLET 1000 MCG PO (08:09)
[2021-06-16] MEDS: carisoprodoL (*CRX) 350 MG TABLET PO ×4 (08:09→21:00)
[2021-06-16] MEDS: amLODIPine BESYLATE 5 MG TABLET 10 MG PO (08:09)
[2021-06-16] MEDS: buPROPion HCL XL (24 HR) 150 MG TABCR PO (08:09)
[2021-06-16] MEDS: lisinopriL 5 MG TABLET PO (08:10)
[2021-06-16] MEDS: FOLIC ACID 1 MG TABLET PO (08:10)
[2021-06-16] MEDS: guaiFENesin 12 HR 600 MG TABCR PO ×2 (08:10→21:07)
[2021-06-16] MEDS: PANTOPRAZOLE 40 MG TABLET PO (08:10)
[2021-06-16] MEDS: ENOXAPARIN 40 MG/0.4 ML SYRINGE SUB-Q (08:10)
[2021-06-16 09:08] LABS: Prothrombin Time 13.2 Seconds (11.1-14.7)
--- NOTE | 2021-06-16 09:59 | PCNFU ---
Nutrition Follow-Up Complete: Inadequate oral intake related to covid pneumonia as evidenced by reported intake of 20% Goal: Meet nutritional needs Pt is slowly progressing towards goal Pt current nutrition is heart healthy diet and dietary supplements Last recorded weight is 122.3 kg. Bowel Motility: No new BM reported Labs Reviewed: AST 68, ALT 72, Alb 2.8, Na 134, Ca 7.9, BUN 21, ALP 165 Meds Noted: norco, norvasc, wellbutrin XL, soma, vitamin B12, decadron, lovenox, folic acid, mucinex, atrovent, levaquin, synthroid, prinivil, protonix Skin: WNL Additional Notes: Unable to visit with pt due to following covid precautions. Per EMR, pt is on a heart healthy diet and dietary supplement of ensure compact BID providing an additional 220kcal and 9g of protein. Per EMR, reported intake is 20%, 50%, 25%, 10%, and 40%. Spoke to pt via phone who reports that her appetite is fine and that she normally doesn't eat very much. Pt reports that she has not been drinking the dietary supplement. RDN encourage intake of heart healthy diet and encourage pt to drink the dietary supplement. Pt agreed. Agree with diet orders at this time. Will continue to follow. Will monitor labs, medications, wt, and reported intake every 5 days
--- NOTE | 2021-06-16 18:32 | PM.IMPN ---
Progress Note: A&P Assessment and Plan (1) Electrolyte abnormality: Code(s): E87.8 - Other disorders of electrolyte and fluid balance, not elsewhere classified Status: Acute (2) COURTNEY (acute kidney injury): Code(s): N17.9 - Acute kidney failure, unspecified Status: Acute (3) Morbid obesity with BMI of 40.0-44.9, adult: Code(s): E66.01 - Morbid (severe) obesity due to excess calories; Z68.41 - Body mass index [BMI] 40.0-44.9, adult Status: Acute (4) Acute respiratory failure with hypoxia: Code(s): J96.01 - Acute respiratory failure with hypoxia Status: Acute (5) Pneumonia due to COVID-19 virus: Code(s): U07.1 - COVID-19; J12.82 - Pneumonia due to coronavirus disease 2019 Status: Acute (6) Hypothyroidism: Qualifiers: Hypothyroidism type: unspecified Qualified Code(s): E03.9 - Hypothyroidism, unspecified Code(s): E03.9 - Hypothyroidism, unspecified Status: Acute (7) Hypertension: Qualifiers: Hypertension type: unspecified Qualified Code(s): I10 - Essential (primary) hypertension Code(s): I10 - Essential (primary) hypertension Status: Acute Assessment and Plan: 06/12/21 Secondary to COVID-19 pneumonia. Reports O2 sats down to 70% at home. Hypoxic down to 84% on presentation Continue supplemental oxygen as needed with goal saturations 92% or above Currently requiring 7 L per high-flow nasal cannula and maintaining adequate O2 saturations. No PE on CTA Symptom onset 06/02/2022. Positive PCR test on 06/11/2021. CXR shows diffuse lung disease consistent with COVID 19 pneumonia Continue isolation precautions Continue dexamethasone and remdesivir #3 today. Monitor LFTs. ALT 90 Consider addition of baricitinib if worsening oxygen demand Continue levofloxacin for secondary bacterial coverage given onset of illness and clinical symptoms. Will check a sputum culture. Supportive care to include bronchodilators, expectorants, antipyretics, incentive spirometry Monitor inflammatory markers Patient has not received vaccination for COVID-19 06/14/21 remains on 15L HF cont current care trend inflam markers CXR in am SOMA PRN OOB as tolerated 06/15/21 pt doing ok cont to complain of REILLY soma ordered cont resp support cont COVID tx pulm recs appreciated 06/16/21 Oxygen requirements are improving Continue current care Patient is aware that her spouse is being admitted to the hospital but unaware of the severity of his symptoms Optimistic that she will continue 10 day course of treatment and successfully be discharged home Subjective Date/time seen: 06/16/21 18:32 Oxygen requirements are improving Patient is aware that her has been admitted but unsure severity of his symptoms them not spoken in a few hours. I advised her that I am not his physician but will ask his doctor to contact her. Exam Narrative: GEN: NAD, AAOx3, cooperative HEENT: NCAT, MMM, EOMI Neck: no JVD Heart: S1S2 RRR Lungs: symmetric chest rise, no use of accessory muscles, currently on 15 L high-flow nasal cannula Abd: soft, NT, ND, bowel sounds normoactive Ext: moves all, no cyanosis, no clubbing, no edema Neuro: Cranial nerves intact, no focal neurological deficits appreciated Psych: Mood and affect congruent Objective Data Vital Signs Vital Signs: Vital Signs - 24 hr 06/15/21 19:51 06/15/21 19:58 06/15/21 20:00 Temperature 98 F Pulse Rate 89 76 83 Respiratory Rate 20 22 H 22 H Blood Pressure 117/64 Pulse Oximetry 96 96 06/15/21 20:08 06/15/21 22:00 06/15/21 23:38 Temperature 97.7 F Pulse Rate 76 72 76 Respiratory Rate 22 H 21 H Blood Pressure 107/60 Pulse Oximetry 96 06/16/21 00:00 06/16/21 01:57 06/16/21 02:00 Temperature Pulse Rate 67 74 74 Respiratory Rate 22 H Blood Pressure Pulse Oximetry 100 93 99 06/16/21 02:07 06/16/21 04:00 06/16/21 06:00 Temperature 97.9 F Pul
[2021-06-16] MEDS: REMDESIVIR 100 MG/NS 250 ML 100 MG/250 ML BAG 250 MG IVPB (21:00)
[2021-06-17] VITALS (27 sets, daily range): BP systolic 102–113; BP diastolic 52–61; PULSE 66–100; RESP 18–22; TEMP 35.6–37.2; O2SAT 90–97
[2021-06-17] MEDS: IPRATROPIUM BR 0.02% INH SOLN 0.5 MG/2.5 ML VIAL INHALATION ×4 (02:54→19:20)
[2021-06-17 04:36] LABS: Basophils Absolute Auto 0.1 K/mm3 (0.0-0.1); Basophils Percent Auto 0.7 % (0.2-1.2); Eosinophils Absolute Auto 0.1 K/mm3 (0-0.3); Eosinophils Percent Auto 0.9 % (0-4.4); Hematocrit 38.1 % (37.0-47.0); Hemoglobin 12.6 g/dL (12.0-15.0); Immature Granulocyte Absolute 0.46 K/mm3 (0.00-0.031); Immature Granulocyte Percent A 4.4 % (0-0.5); Lymphocytes Absolute Auto 2.61 K/mm3 (0.9-3.2); Lymphocytes Percent Auto 24.8 % (18.3-44.2); Mean Corpuscular HGB Conc 33.1 g/dl (32-36); Mean Corpuscular Hemoglobin 33.1 pg (26-34); Mean Platelet Volume 10.1 fl (7.4-10.4); Monocytes Absolute Auto 1.1 K/mm3 (0.1-0.6); Monocytes Percent Auto 10.5 % (2.6-8.5); Neutrophils Absolute Auto 6.2 K/mm3 (1.3-6.7); Neutrophils Percent Auto 58.7 % (45.5-73.1); Platelet Count Result 400 k/mm3 (150-375); Red Blood Count 3.81 M/mm3 (4.2-5.4); Red Cell Distribution Width 13.2 % (11.5-14.5); White Blood Count 10.5 K/mm3 (4.5-10.0)
[2021-06-17 04:46] LABS: INR 0.9; Prothrombin Time 12.5 Seconds (11.1-14.7)
[2021-06-17 04:52] LABS: Alanine Aminotransferase 57 U/L (4-35); Aspartate Amino Transferase 40 U/L (14-36); Estimated CRCL calculation 96 ml/min; Estimated Glomerular Filt Rate > 60
[2021-06-17] MEDS: LEVOTHYROXINE SODIUM 50 MCG TABLET PO (06:13)
[2021-06-17] MEDS: guaiFENesin 12 HR 600 MG TABCR PO ×2 (08:14→22:52)
[2021-06-17] MEDS: CYANOCOBALAMIN 1,000 MCG TABLET 1000 MCG PO (08:14)
[2021-06-17] MEDS: buPROPion HCL XL (24 HR) 150 MG TABCR PO (08:14)
[2021-06-17] MEDS: carisoprodoL (*CRX) 350 MG TABLET PO ×4 (08:14→22:52)
[2021-06-17] MEDS: amLODIPine BESYLATE 5 MG TABLET 10 MG PO (08:22)
[2021-06-17] MEDS: lisinopriL 5 MG TABLET PO (08:22)
[2021-06-17] MEDS: FOLIC ACID 1 MG TABLET PO (08:22)
[2021-06-17] MEDS: PANTOPRAZOLE 40 MG TABLET PO (08:22)
[2021-06-17] MEDS: ENOXAPARIN 40 MG/0.4 ML SYRINGE SUB-Q ×2 (08:22→22:52)
--- NOTE | 2021-06-17 09:49 | PM.IMPN ---
Progress Note: A&P Assessment and Plan (1) Electrolyte abnormality: Code(s): E87.8 - Other disorders of electrolyte and fluid balance, not elsewhere classified Status: Acute (2) COURTNEY (acute kidney injury): Code(s): N17.9 - Acute kidney failure, unspecified Status: Acute (3) Morbid obesity with BMI of 40.0-44.9, adult: Code(s): E66.01 - Morbid (severe) obesity due to excess calories; Z68.41 - Body mass index [BMI] 40.0-44.9, adult Status: Acute (4) Acute respiratory failure with hypoxia: Code(s): J96.01 - Acute respiratory failure with hypoxia Status: Acute (5) Pneumonia due to COVID-19 virus: Code(s): U07.1 - COVID-19; J12.82 - Pneumonia due to coronavirus disease 2019 Status: Acute (6) Hypothyroidism: Qualifiers: Hypothyroidism type: unspecified Qualified Code(s): E03.9 - Hypothyroidism, unspecified Code(s): E03.9 - Hypothyroidism, unspecified Status: Acute (7) Hypertension: Qualifiers: Hypertension type: unspecified Qualified Code(s): I10 - Essential (primary) hypertension Code(s): I10 - Essential (primary) hypertension Status: Acute Assessment and Plan: 06/12/21 Secondary to COVID-19 pneumonia. Reports O2 sats down to 70% at home. Hypoxic down to 84% on presentation Continue supplemental oxygen as needed with goal saturations 92% or above Currently requiring 7 L per high-flow nasal cannula and maintaining adequate O2 saturations. No PE on CTA Symptom onset 06/02/2022. Positive PCR test on 06/11/2021. CXR shows diffuse lung disease consistent with COVID 19 pneumonia Continue isolation precautions Continue dexamethasone and remdesivir #3 today. Monitor LFTs. ALT 90 Consider addition of baricitinib if worsening oxygen demand Continue levofloxacin for secondary bacterial coverage given onset of illness and clinical symptoms. Will check a sputum culture. Supportive care to include bronchodilators, expectorants, antipyretics, incentive spirometry Monitor inflammatory markers Patient has not received vaccination for COVID-19 06/14/21 remains on 15L HF cont current care trend inflam markers CXR in am SOMA PRN OOB as tolerated 01/13/22 pt doing ok cont to complain of REILLY soma ordered cont resp support cont COVID tx pulm recs appreciated 06/16/21 Oxygen requirements are improving Continue current care Patient is aware that her spouse is being admitted to the hospital but unaware of the severity of his symptoms Optimistic that she will continue 10 day course of treatment and successfully be discharged home 06/17/2021 Oxygen requirements continued to improve Patient encouraged to mobilize out of bed for all meals Obese female currently very sedentary will add SCDs and increase DVT prophylaxis to b.i.d. dosing remdesivir day 6 10 continue current care Subjective Date/time seen: 06/17/21 09:49 pt doing ok o2 requirements improving encouraged to get out of bed to chair Exam Narrative: GEN: NAD, AAOx3, cooperative HEENT: NCAT, MMM, EOMI Neck: no JVD Heart: S1S2 RRR Lungs: symmetric chest rise, no use of accessory muscles, currently on 6 L high-flow nasal cannula Abd: soft, NT, ND, bowel sounds normoactive Ext: moves all, no cyanosis, no clubbing, no edema Neuro: Cranial nerves intact, no focal neurological deficits appreciated Psych: Mood and affect congruent Objective Data Vital Signs Vital Signs: Vital Signs - 24 hr 06/16/21 10:00 06/16/21 12:00 06/16/21 14:00 Temperature 98 F Pulse Rate 71 67 83 Respiratory Rate 20 Blood Pressure 121/57 L Pulse Oximetry 92 06/16/21 14:15 06/16/21 16:00 06/16/21 18:00 Temperature 97.2 F L Pulse Rate 76 74 91 Respiratory Rate 20 22 H Blood Pressure 115/58 L Pulse Oximetry 94 06/16/21 20:00 06/16/21 21:00 06/16/21 21:10 Temperature 99.1 F Pulse Rate 83 84 87 Respiratory Rate 21 H 20 20 Blood Pressure
[2021-06-17] MEDS: REMDESIVIR 100 MG/NS 250 ML 100 MG/250 ML BAG 250 MG IVPB (22:52)
[2021-06-18] VITALS (19 sets, daily range): BP systolic 101–113; BP diastolic 52–66; PULSE 73–108; RESP 18–24; TEMP 36–37; O2SAT 92–97
[2021-06-18] MEDS: IPRATROPIUM BR 0.02% INH SOLN 0.5 MG/2.5 ML VIAL INHALATION ×3 (02:10→20:39)
[2021-06-18 05:17] LABS: Basophils Percent Auto 0.2 % (0.2-1.2); Eosinophils Absolute Auto 0.1 K/mm3 (0-0.3); Eosinophils Percent Auto 1.2 % (0-4.4); Hematocrit 35.8 % (37.0-47.0); Hemoglobin 11.9 g/dL (12.0-15.0); Immature Granulocyte Absolute 0.45 K/mm3 (0.00-0.031); Immature Granulocyte Percent A 4.3 % (0-0.5); Lymphocytes Absolute Auto 2.46 K/mm3 (0.9-3.2); Lymphocytes Percent Auto 23.8 % (18.3-44.2); Mean Corpuscular HGB Conc 33.2 g/dl (32-36); Mean Corpuscular Volume 99.2 fl (80-100); Mean Platelet Volume 10.1 fl (7.4-10.4); Monocytes Absolute Auto 1.1 K/mm3 (0.1-0.6); Monocytes Percent Auto 10.1 % (2.6-8.5); Neutrophils Absolute Auto 6.3 K/mm3 (1.3-6.7); Neutrophils Percent Auto 60.4 % (45.5-73.1); Platelet Count Result 443 k/mm3 (150-375); Red Blood Count 3.61 M/mm3 (4.2-5.4); Red Cell Distribution Width 13.3 % (11.5-14.5); White Blood Count 10.4 K/mm3 (4.5-10.0)
[2021-06-18 05:29] LABS: Alanine Aminotransferase 48 U/L (4-35); Aspartate Amino Transferase 57 U/L (14-36); Estimated CRCL calculation 96 ml/min; Estimated Glomerular Filt Rate > 60
[2021-06-18] MEDS: LEVOTHYROXINE SODIUM 75 MCG TABLET PO (07:02)
[2021-06-18] MEDS: buPROPion HCL XL (24 HR) 150 MG TABCR PO (09:11)
[2021-06-18] MEDS: lisinopriL 5 MG TABLET PO (09:11)
[2021-06-18] MEDS: amLODIPine BESYLATE 5 MG TABLET 10 MG PO (09:11)
[2021-06-18] MEDS: FOLIC ACID 1 MG TABLET PO (09:11)
[2021-06-18] MEDS: guaiFENesin 12 HR 600 MG TABCR PO ×2 (09:11→20:11)
[2021-06-18] MEDS: CYANOCOBALAMIN 1,000 MCG TABLET 1000 MCG PO (09:11)
[2021-06-18] MEDS: carisoprodoL (*CRX) 350 MG TABLET PO ×4 (09:11→20:10)
[2021-06-18] MEDS: ENOXAPARIN 40 MG/0.4 ML SYRINGE SUB-Q ×2 (09:16→20:11)
[2021-06-18] MEDS: PANTOPRAZOLE 40 MG TABLET PO (09:16)
[2021-06-18 13:13] LABS: Glucose Point of Care 139 mg/dl (65-105)
--- NOTE | 2021-06-18 15:36 | PM.IMPN ---
Progress Note: A&P Assessment and Plan (1) Electrolyte abnormality: Code(s): E87.8 - Other disorders of electrolyte and fluid balance, not elsewhere classified Status: Acute (2) COURTNEY (acute kidney injury): Code(s): N17.9 - Acute kidney failure, unspecified Status: Acute (3) Morbid obesity with BMI of 40.0-44.9, adult: Code(s): E66.01 - Morbid (severe) obesity due to excess calories; Z68.41 - Body mass index [BMI] 40.0-44.9, adult Status: Acute (4) Acute respiratory failure with hypoxia: Code(s): J96.01 - Acute respiratory failure with hypoxia Status: Acute (5) Pneumonia due to COVID-19 virus: Code(s): U07.1 - COVID-19; J12.82 - Pneumonia due to coronavirus disease 2019 Status: Acute (6) Hypothyroidism: Qualifiers: Hypothyroidism type: unspecified Qualified Code(s): E03.9 - Hypothyroidism, unspecified Code(s): E03.9 - Hypothyroidism, unspecified Status: Acute (7) Hypertension: Qualifiers: Hypertension type: unspecified Qualified Code(s): I10 - Essential (primary) hypertension Code(s): I10 - Essential (primary) hypertension Status: Acute Assessment and Plan: 06/12/21 Secondary to COVID-19 pneumonia. Reports O2 sats down to 70% at home. Hypoxic down to 84% on presentation Continue supplemental oxygen as needed with goal saturations 92% or above Currently requiring 7 L per high-flow nasal cannula and maintaining adequate O2 saturations. No PE on CTA Symptom onset 06/02/2022. Positive PCR test on 06/11/2021. CXR shows diffuse lung disease consistent with COVID 19 pneumonia Continue isolation precautions Continue dexamethasone and remdesivir #3 today. Monitor LFTs. ALT 90 Consider addition of baricitinib if worsening oxygen demand Continue levofloxacin for secondary bacterial coverage given onset of illness and clinical symptoms. Will check a sputum culture. Supportive care to include bronchodilators, expectorants, antipyretics, incentive spirometry Monitor inflammatory markers Patient has not received vaccination for COVID-19 06/14/21 remains on 15L HF cont current care trend inflam markers CXR in am SOMA PRN OOB as tolerated 06/15/21 pt doing ok cont to complain of REILLY soma ordered cont resp support cont COVID tx pulm recs appreciated 06/16/21 Oxygen requirements are improving Continue current care Patient is aware that her spouse is being admitted to the hospital but unaware of the severity of his symptoms Optimistic that she will continue 10 day course of treatment and successfully be discharged home 06/17/2021 Oxygen requirements continued to improve Patient encouraged to mobilize out of bed for all meals Obese female currently very sedentary will add SCDs and increase DVT prophylaxis to b.i.d. dosing remdesivir day 6 continue current care 06/18/21 day 7 of 10 cont to improve slowly will need mobilization out of bed transfer to med surg w tele and continuous pulse ox dc trivedi bedside commode cont current supportive care am cxr and inflam markers ordered spouse is hospitalized in IMU w CHARIS[facility] attending physician updating Zandra about her spouse Subjective Date/time seen: 06/18/21 15:36 pt doing better O2 requirements improving, up to chair today sats in low 90s on 6L HFNC Exam Narrative: GEN: NAD, AAOx3, cooperative obese HEENT: NCAT, MMM, EOMI Neck: no JVD Lungs: symmetric chest rise, no use of accessory muscles, currently on 6 L high-flow nasal cannula Abd: soft, NT, ND, bowel sounds normoactive Ext: moves all, no cyanosis, no clubbing, no edema Neuro: Cranial nerves intact, no focal neurological deficits appreciated Psych: Mood and affect congruent Objective Data Vital Signs Vital Signs: Vital Signs - 24 hr 06/17/21 16:00 06/17/21 16:44 06/17/21 18:00 Temperature 96.3 F L Pulse Rate 96 81 88 Respiratory Rate 20 Blood Pressure 112/52 L Pu
--- NOTE | 2021-06-18 17:57 | PC.NURSE ---
This patient, Zandra Mireles, was transfered to [facility] Surg Room 321-01. Patient/family oriented to hospital policies and general routines including ID bracelet, bed and alarms, visiting hours, pain management, procedures, bathroom and other care routines, personal items, smoking policy, room service/diet, and visiting hours. Information on how to activate the Rapid Response Team has been discussed. Patient/Family are encouraged to report perceived risks to care and to ask questions if they do not understand what they are told or what they should do.
[2021-06-18] MEDS: REMDESIVIR 100 MG/NS 250 ML 100 MG/250 ML BAG 250 MG IVPB (20:10)
[2021-06-19] VITALS (18 sets, daily range): BP systolic 109–125; BP diastolic 55–69; PULSE 70–101; RESP 16–21; TEMP 35.9–37.1; O2SAT 93–98
[2021-06-19] MEDS: IPRATROPIUM BR 0.02% INH SOLN 0.5 MG/2.5 ML VIAL INHALATION ×4 (02:09→21:36)
[2021-06-19] MEDS: LEVOTHYROXINE SODIUM 50 MCG TABLET PO (05:39)
[2021-06-19 06:45] LABS: Basophils Absolute Auto 0.1 K/mm3 (0.0-0.1); Basophils Percent Auto 0.8 % (0.2-1.2); Eosinophils Absolute Auto 0.1 K/mm3 (0-0.3); Eosinophils Percent Auto 1.2 % (0-4.4); Hematocrit 38.4 % (37.0-47.0); Hemoglobin 12.7 g/dL (12.0-15.0); Immature Granulocyte Absolute 0.47 K/mm3 (0.00-0.031); Lymphocytes Absolute Auto 2.55 K/mm3 (0.9-3.2); Lymphocytes Percent Auto 21.8 % (18.3-44.2); Mean Corpuscular HGB Conc 33.1 g/dl (32-36); Mean Corpuscular Hemoglobin 32.7 pg (26-34); Monocytes Absolute Auto 1.5 K/mm3 (0.1-0.6); Monocytes Percent Auto 13.1 % (2.6-8.5); Neutrophils Absolute Auto 6.9 K/mm3 (1.3-6.7); Neutrophils Percent Auto 59.1 % (45.5-73.1); Platelet Count Result 479 k/mm3 (150-375); Red Blood Count 3.88 M/mm3 (4.2-5.4); Red Cell Distribution Width 13.5 % (11.5-14.5); White Blood Count 11.7 K/mm3 (4.5-10.0)
[2021-06-19 06:58] LABS: Alanine Aminotransferase 40 U/L (4-35); Aspartate Amino Transferase 32 U/L (14-36); Estimated CRCL calculation 96 ml/min; Estimated Glomerular Filt Rate > 60
[2021-06-19 06:59] LABS: Alanine Aminotransferase 40 U/L (4-35); Albumin Level 2.8 g/dL (3.5-5.1); Alkaline Phosphatase 108 U/L (38-126); Anion Gap 6 mmol/L (8-16); Aspartate Amino Transferase 27 U/L (14-36); Bilirubin,Total 0.4 mg/dL (0.2-1.3); Blood Urea Nitrogen 19 mg/dL (7-17); CRP 0.5 mg/dL (<1.0); Carbon Dioxide 29 mmol/L (22-30); Chloride 99 mmol/L (98-107); Estimated CRCL calculation 85 ml/min; Estimated Glomerular Filt Rate > 60; Glucose 92 mg/dL (65-110); Magnesium 2.2 mg/dL (1.6-2.3); Sodium 134 mmol/L (137-145)
[2021-06-19 07:19] LABS: D Dimer 0.46 ug/mL (<0.48)
[2021-06-19 07:22] LABS: Prothrombin Time 13.4 Seconds (11.1-14.7)
--- NOTE | 2021-06-19 08:15 | PM.IMPN ---
Progress Note: A&P Assessment and Plan (1) Electrolyte abnormality: Code(s): E87.8 - Other disorders of electrolyte and fluid balance, not elsewhere classified Status: Acute (2) COURTNEY (acute kidney injury): Code(s): N17.9 - Acute kidney failure, unspecified Status: Acute (3) Morbid obesity with BMI of 40.0-44.9, adult: Code(s): E66.01 - Morbid (severe) obesity due to excess calories; Z68.41 - Body mass index [BMI] 40.0-44.9, adult Status: Acute (4) Acute respiratory failure with hypoxia: Code(s): J96.01 - Acute respiratory failure with hypoxia Status: Acute (5) Pneumonia due to COVID-19 virus: Code(s): U07.1 - COVID-19; J12.82 - Pneumonia due to coronavirus disease 2019 Status: Acute (6) Hypothyroidism: Qualifiers: Hypothyroidism type: unspecified Qualified Code(s): E03.9 - Hypothyroidism, unspecified Code(s): E03.9 - Hypothyroidism, unspecified Status: Acute (7) Hypertension: Qualifiers: Hypertension type: unspecified Qualified Code(s): I10 - Essential (primary) hypertension Code(s): I10 - Essential (primary) hypertension Status: Acute Assessment and Plan: 06/12/21 Secondary to COVID-19 pneumonia. Reports O2 sats down to 70% at home. Hypoxic down to 84% on presentation Continue supplemental oxygen as needed with goal saturations 92% or above Currently requiring 7 L per high-flow nasal cannula and maintaining adequate O2 saturations. No PE on CTA Symptom onset 06/02/2022. Positive PCR test on 06/11/2021. CXR shows diffuse lung disease consistent with COVID 19 pneumonia Continue isolation precautions Continue dexamethasone and remdesivir #3 today. Monitor LFTs. ALT 90 Consider addition of baricitinib if worsening oxygen demand Continue levofloxacin for secondary bacterial coverage given onset of illness and clinical symptoms. Will check a sputum culture. Supportive care to include bronchodilators, expectorants, antipyretics, incentive spirometry Monitor inflammatory markers Patient has not received vaccination for COVID-19 06/14/21 remains on 15L HF cont current care trend inflam markers CXR in am SOMA PRN OOB as tolerated 06/15/21 pt doing ok cont to complain of REILLY soma ordered cont resp support cont COVID tx pulm recs appreciated 06/16/21 Oxygen requirements are improving Continue current care Patient is aware that her spouse is being admitted to the hospital but unaware of the severity of his symptoms Optimistic that she will continue 10 day course of treatment and successfully be discharged home 06/17/2021 Oxygen requirements continued to improve Patient encouraged to mobilize out of bed for all meals Obese female currently very sedentary will add SCDs and increase DVT prophylaxis to b.i.d. dosing remdesivir day 6 of continue current care 06/18/21 day 7 of 10 cont to improve slowly will need mobilization out of bed transfer to med surg w tele and continuous pulse ox dc trivedi bedside commode cont current supportive care am cxr and inflam markers ordered spouse is hospitalized in IMU w [facility] attending physician updating Zandra about her spouse 06/19/21 day 8 of 10 cont to improve slowly Continue remdesivir and Decadron Wean O2 keep saturation above 90% will need mobilization out of bed telemonitor with continuous pulse ox dc trivedi bedside commode cont current supportive care inflam markers ordered in the am Time Spent With Patient Time with patient: 25 - 35 minutes Subjective Date/time seen: 06/19/21 0815 Interval history: 06/12/21 Secondary to COVID-19 pneumonia. Reports O2 sats down to 70% at home. Hypoxic down to 84% on presentation Continue supplemental oxygen as needed with goal saturations 92% or above Currently requiring 7 L per high-flow nasal cannula and maintaining adequate O2 saturations. No PE on CTA Symptom onset 06/02/2022. Positive PC
[2021-06-19] MEDS: ENOXAPARIN 40 MG/0.4 ML SYRINGE SUB-Q ×2 (08:24→21:17)
[2021-06-19] MEDS: amLODIPine BESYLATE 5 MG TABLET 10 MG PO (08:24)
[2021-06-19] MEDS: buPROPion HCL XL (24 HR) 150 MG TABCR PO (08:24)
[2021-06-19] MEDS: lisinopriL 5 MG TABLET PO (08:24)
[2021-06-19] MEDS: FOLIC ACID 1 MG TABLET PO (08:24)
[2021-06-19] MEDS: PANTOPRAZOLE 40 MG TABLET PO (08:24)
[2021-06-19] MEDS: guaiFENesin 12 HR 600 MG TABCR PO ×2 (08:24→21:16)
[2021-06-19] MEDS: CYANOCOBALAMIN 1,000 MCG TABLET 1000 MCG PO (08:24)
[2021-06-19] MEDS: carisoprodoL (*CRX) 350 MG TABLET PO ×4 (08:24→21:16)
[2021-06-19] MEDS: REMDESIVIR 100 MG/NS 250 ML 100 MG/250 ML BAG 250 MG IVPB (21:16)
[2021-06-20] VITALS (13 sets, daily range): BP systolic 97–120; BP diastolic 57–71; PULSE 71–106; RESP 14–22; TEMP 36.4–36.8; O2SAT 90–99
[2021-06-20] MEDS: IPRATROPIUM BR 0.02% INH SOLN 0.5 MG/2.5 ML VIAL INHALATION ×4 (01:48→21:34)
[2021-06-20] MEDS: LEVOTHYROXINE SODIUM 75 MCG TABLET PO (06:47)
[2021-06-20 07:34] LABS: Basophils Absolute Auto 0.1 K/mm3 (0.0-0.1); Basophils Percent Auto 0.6 % (0.2-1.2); Eosinophils Absolute Auto 0.1 K/mm3 (0-0.3); Eosinophils Percent Auto 1.6 % (0-4.4); Hematocrit 36.3 % (37.0-47.0); Immature Granulocyte Absolute 0.23 K/mm3 (0.00-0.031); Immature Granulocyte Percent A 2.8 % (0-0.5); Lymphocytes Absolute Auto 2.48 K/mm3 (0.9-3.2); Lymphocytes Percent Auto 29.7 % (18.3-44.2); Mean Corpuscular HGB Conc 33.1 g/dl (32-36); Mean Corpuscular Hemoglobin 32.4 pg (26-34); Mean Corpuscular Volume 98.1 fl (80-100); Mean Platelet Volume 9.8 fl (7.4-10.4); Monocytes Absolute Auto 1.3 K/mm3 (0.1-0.6); Monocytes Percent Auto 15.1 % (2.6-8.5); Neutrophils Absolute Auto 4.2 K/mm3 (1.3-6.7); Neutrophils Percent Auto 50.2 % (45.5-73.1); Platelet Count Result 497 k/mm3 (150-375); Red Cell Distribution Width 13.6 % (11.5-14.5); White Blood Count 8.3 K/mm3 (4.5-10.0)
[2021-06-20 07:54] LABS: Alanine Aminotransferase 33 U/L (4-35); Albumin Level 2.9 g/dL (3.5-5.1); Alkaline Phosphatase 101 U/L (38-126); Anion Gap 5 mmol/L (8-16); Aspartate Amino Transferase 27 U/L (14-36); Bilirubin,Total 0.3 mg/dL (0.2-1.3); Blood Urea Nitrogen 14 mg/dL (7-17); CRP 0.6 mg/dL (<1.0); Calcium 8.4 mg/dL (8.4-10.2); Carbon Dioxide 31 mmol/L (22-30); Chloride 99 mmol/L (98-107); Estimated CRCL calculation 84 ml/min; Estimated Glomerular Filt Rate > 60; Glucose 82 mg/dL (65-110); Lactate Dehydrogenase 510 U/L (313-618); Magnesium 2.1 mg/dL (1.6-2.3); Potassium 4.1 mmol/L (3.4-5.0); Sodium 135 mmol/L (137-145)
[2021-06-20 07:56] LABS: INR 1.1; Prothrombin Time 13.6 Seconds (11.1-14.7)
[2021-06-20 08:14] LABS: D Dimer 0.25 ug/mL (<0.48)
--- NOTE | 2021-06-20 08:15 | P.DS_ITS ---
DS: Admitting Diagnosis Discharge Date 06/21/21 0815 Admitting Diagnosis COVID-19 pneumonia DS: Discharge Diagnosis Discharge Diagnosis (1) Electrolyte abnormality: Code(s): E87.8 - Other disorders of electrolyte and fluid balance, not elsewhere classified Status: Acute Assessment and Plan: * Electrolytes K 4.3, Mg 2.2 * Trend labs (2) COURTNEY (acute kidney injury): Code(s): N17.9 - Acute kidney failure, unspecified Status: Acute Assessment and Plan: * Stable * BUN/Cr 14/0.70 * Continue to trend * Adjust medication to renal function (3) Morbid obesity with BMI of 40.0-44.9, adult: Code(s): E66.01 - Morbid (severe) obesity due to excess calories; Z68.41 - Body mass inde x [BMI] 40.0-44.9, adult Status: Acute Assessment and Plan: * Life style modifications * Education * Consider broadcast operations technician consult (4) Acute respiratory failure with hypoxia: Code(s): J96.01 - Acute respiratory failure with hypoxia Status: Acute Assessment and Plan: * Secondary to COVID-19 pneumonia * Reports O2 sats down to 70% at home * Hypoxic down to 84% on presentation * Continue supplemental oxygen as needed with goal saturations 92% or above * Currently on room air * No PE on CTA (5) Pneumonia due to COVID-19 virus: Code(s): U07.1 - COVID-19; J12.82 - Pneumonia due to coronavirus disease 2018 Status: Acute Assessment and Plan: * Symptom onset 06/02/2022. Positive PCR test on 06/11/2021. CXR shows diffuse lung disease consistent with COVID 19 pneumonia * Continue isolation precautions * Continue dexamethasone and remdesivir #10 today. Monitor LFTs. ALT 32 * Continue levofloxacin for secondary bacterial coverage given onset of illness and clinical symptoms. * sputum culture ordered and pending * Supportive care to include bronchodilators, expectorants, antipyretics, incentive spirometry * inflammatory markers: Ferritin 368, LDH 532, CRP 0.7, Dimer 0.36 * Patient has not received vaccination for COVID-19 (6) Hypothyroidism: Qualifiers: Hypothyroidism type: unspecified Qualified Code(s): E03.9 - Hypothyroidism, unspecified Code(s): E03.9 - Hypothyroidism, unspecified Status: Acute Assessment and Plan: * TSH 0.666 * Continue Levothyroxine 125mcg (7) Hypertension: Qualifiers: Hypertension type: unspecified Qualified Code(s): I10 - Essential (primary) hypertension Code(s): I10 - Essential (primary) hypertension Status: Acute Assessment and Plan: * Current 137/74 * Amlodipine 10mg PO, HTCZ 25mg PO, Lisinpril 5mg PO Daily * Trend BP * Adjust therapy as indicated DS: Summary Hospital Course Hospital Course: Patient is a 61-year-old female with a past medical history of morbid obesity, anxiety disorder, hypertension, hypothyroidism who presented to the emergency room due to body aches, malaise and pains, cough, poor appetite. Patient also tested positive for COVID-19 and decided come to the emergency room since she was not feeling any better. Patient did note and marked that her oxygen saturations at home were 89%. Chest x-ray showed diffuse bilateral lung infiltrates. CTA showed no pulmonary embolism however consistent with COVID-19. Patient was started on IV remdesivir and Decadron. Supplemental oxygen was used to maintain saturations greater than 92%
--- NOTE | 2021-06-20 08:15 | PM.DS ---
DS: Admitting Diagnosis Discharge Date 06/21/2115 Admitting Diagnosis COVID-19 pneumonia DS: Discharge Diagnosis Discharge Diagnosis (1) Electrolyte abnormality: Code(s): E87.8 - Other disorders of electrolyte and fluid balance, not elsewhere classified Status: Acute Assessment and Plan: Electrolytes K 4.3, Mg 2.2 Trend labs (2) COURTNEY (acute kidney injury): Code(s): N17.9 - Acute kidney failure, unspecified Status: Acute Assessment and Plan: Stable BUN/Cr 14/0.70 Continue to trend Adjust medication to renal function (3) Morbid obesity with BMI of 40.0-44.9, adult: Code(s): E66.01 - Morbid (severe) obesity due to excess calories; Z68.41 - Body mass index [BMI] 40.0-44.9, adult Status: Acute Assessment and Plan: Life style modifications Education Consider hand laminator consult (4) Acute respiratory failure with hypoxia: Code(s): J96.01 - Acute respiratory failure with hypoxia Status: Acute Assessment and Plan: Secondary to COVID-19 pneumonia Reports O2 sats down to 70% at home Hypoxic down to 84% on presentation Continue supplemental oxygen as needed with goal saturations 92% or above Currently on room air No PE on CTA (5) Pneumonia due to COVID-19 virus: Code(s): U07.1 - COVID-19; J12.82 - Pneumonia due to coronavirus disease 2018 Status: Acute Assessment and Plan: Symptom onset 06/02/2022. Positive PCR test on 06/11/2021. CXR shows diffuse lung disease consistent with COVID 19 pneumonia Continue isolation precautions Continue dexamethasone and remdesivir #10 today. Monitor LFTs. ALT 32 Continue levofloxacin for secondary bacterial coverage given onset of illness and clinical symptoms. sputum culture ordered and pending Supportive care to include bronchodilators, expectorants, antipyretics, incentive spirometry inflammatory markers: Ferritin 368, LDH 532, CRP 0.7, Dimer 0.36 Patient has not received vaccination for COVID-19 (6) Hypothyroidism: Qualifiers: Hypothyroidism type: unspecified Qualified Code(s): E03.9 - Hypothyroidism, unspecified Code(s): E03.9 - Hypothyroidism, unspecified Status: Acute Assessment and Plan: TSH 0.666 Continue Levothyroxine 125mcg (7) Hypertension: Qualifiers: Hypertension type: unspecified Qualified Code(s): I10 - Essential (primary) hypertension Code(s): I10 - Essential (primary) hypertension Status: Acute Assessment and Plan: Current 137/74 Amlodipine 10mg PO, HTCZ 25mg PO, Lisinpril 5mg PO Daily Trend BP Adjust therapy as indicated DS: Summary Hospital Course Hospital Course: Patient is a 61-year-old female with a past medical history of morbid obesity, anxiety disorder, hypertension, hypothyroidism who presented to the emergency room due to body aches, malaise and pains, cough, poor appetite. Patient also tested positive for COVID-19 and decided come to the emergency room since she was not feeling any better. Patient did note and marked that her oxygen saturations at home were 89%. Chest x-ray showed diffuse bilateral lung infiltrates. CTA showed no pulmonary embolism however consistent with COVID-19. Patient was started on IV remdesivir and Decadron. Supplemental oxygen was used to maintain saturations greater than 92% throughout her visit. Patient did require high levels supplemental oxygen and was in the IMCU. Patient then transferred out of the IMCU where she was able to be titrated to room air. Patient denies chest pain, nausea, vomiting, diarrhea, constipation. Patient does still have shortness breath with some mild activity. Patient is able to get up on her own and is able to get around the room without oxygen. Saturations are noted to be 91-93% on room air. Blood pressures have been soft in the upper 90s over 50s. Lab yin
[2021-06-20] MEDS: ENOXAPARIN 40 MG/0.4 ML SYRINGE SUB-Q ×2 (08:44→21:17)
[2021-06-20] MEDS: amLODIPine BESYLATE 5 MG TABLET 10 MG PO (08:44)
[2021-06-20] MEDS: FOLIC ACID 1 MG TABLET PO (08:44)
[2021-06-20] MEDS: buPROPion HCL XL (24 HR) 150 MG TABCR PO (08:44)
[2021-06-20] MEDS: lisinopriL 5 MG TABLET PO (08:44)
[2021-06-20] MEDS: PANTOPRAZOLE 40 MG TABLET PO (08:44)
[2021-06-20] MEDS: CYANOCOBALAMIN 1,000 MCG TABLET 1000 MCG PO (08:44)
[2021-06-20] MEDS: guaiFENesin 12 HR 600 MG TABCR PO ×2 (08:45→21:16)
[2021-06-20] MEDS: NEOMYCIN/POLYMYXIN/BACITRACIN OPHTH OINTMENT 3.5 GM TUBE 1 APPLIC EACH EYE ×2 (08:48→21:47)
[2021-06-20] MEDS: carisoprodoL (*CRX) 350 MG TABLET PO ×4 (08:49→21:16)
--- NOTE | 2021-06-20 09:00 | PM.IMPN ---
Progress Note: A&P Assessment and Plan (1) Electrolyte abnormality: Code(s): E87.8 - Other disorders of electrolyte and fluid balance, not elsewhere classified Status: Acute Assessment and Plan: Electrolytes stable today Trend labs (2) COURTNEY (acute kidney injury): Code(s): N17.9 - Acute kidney failure, unspecified Status: Acute Assessment and Plan: Stable BUN/Cr 14/0.80 Continue to trend Adjust medication to renal function (3) Morbid obesity with BMI of 40.0-44.9, adult: Code(s): E66.01 - Morbid (severe) obesity due to excess calories; Z68.41 - Body mass index [BMI] 40.0-44.9, adult Status: Acute Assessment and Plan: Life style modifications Education Consider consumer experience consultant consult (4) Acute respiratory failure with hypoxia: Code(s): J96.01 - Acute respiratory failure with hypoxia Status: Acute Assessment and Plan: Secondary to COVID-19 pneumonia Reports O2 sats down to 70% at home Hypoxic down to 84% on presentation Continue supplemental oxygen as needed with goal saturations 92% or above Currently on room air No PE on CTA (5) Pneumonia due to COVID-19 virus: Code(s): U07.1 - COVID-19; J12.82 - Pneumonia due to coronavirus disease 2019 Status: Acute Assessment and Plan: Symptom onset 06/02/2022. Positive PCR test on 06/11/2021. CXR shows diffuse lung disease consistent with COVID 19 pneumonia Continue isolation precautions Continue dexamethasone and remdesivir #10 today. Monitor LFTs. ALT 33 Continue levofloxacin for secondary bacterial coverage given onset of illness and clinical symptoms. sputum culture ordered and pending Supportive care to include bronchodilators, expectorants, antipyretics, incentive spirometry inflammatory markers: Ferritin 404, LDH 510, CRP 0.6, Dimer 0.25 Patient has not received vaccination for COVID-19 (6) Hypothyroidism: Qualifiers: Hypothyroidism type: unspecified Qualified Code(s): E03.9 - Hypothyroidism, unspecified Code(s): E03.9 - Hypothyroidism, unspecified Status: Acute Assessment and Plan: TSH 0.666 Continue Levothyroxine 125mcg (7) Hypertension: Qualifiers: Hypertension type: unspecified Qualified Code(s): I10 - Essential (primary) hypertension Code(s): I10 - Essential (primary) hypertension Status: Acute Assessment and Plan: Current 98/57 Amlodipine 10mg PO, HTCZ 25mg PO, Lisinpril 5mg PO Daily Trend BP Adjust therapy as indicated Time Spent With Patient Time with patient: Greater than 35 minutes Subjective Date/time seen: 06/20/21 0900 Interval history: 06/12/21 Secondary to COVID-19 pneumonia. Reports O2 sats down to 70% at home. Hypoxic down to 84% on presentation Continue supplemental oxygen as needed with goal saturations 92% or above Currently requiring 7 L per high-flow nasal cannula and maintaining adequate O2 saturations. No PE on CTA Symptom onset 06/02/2022. Positive PCR test on 06/11/2021. CXR shows diffuse lung disease consistent with COVID 19 pneumonia Continue isolation precautions Continue dexamethasone and remdesivir #3 today. Monitor LFTs. ALT 90 Consider addition of baricitinib if worsening oxygen demand Continue levofloxacin for secondary bacterial coverage given onset of illness and clinical symptoms. Will check a sputum culture. Supportive care to include bronchodilators, expectorants, antipyretics, incentive spirometry Monitor inflammatory markers Patient has not received vaccination for COVID-19 06/14/21 remains on 15L HF cont current care trend inflam markers CXR in am SOMA PRN OOB as tolerated 06/15/21 pt doing ok cont to complain of REILLY soma ordered cont resp support cont COVID tx pulm recs appreciated 06/16/21 Oxygen requirements are improving Continue current care Patient is aware t
--- NOTE | 2021-06-20 09:00 | P.PNIM_ITS ---
Progress Note: A&P Assessment and Plan (1) Electrolyte abnormality: Code(s): E87.8 - Other disorders of electrolyte and fluid balance, not elsewhere classified Status: Acute Assessment and Plan: * Electrolytes stable today * Trend labs (2) COURTNEY (acute kidney injury): Code(s): N17.9 - Acute kidney failure, unspecified Status: Acute Assessment and Plan: * Stable * BUN/Cr 14/0.80 * Continue to trend * Adjust medication to renal function (3) Morbid obesity with BMI of 40.0-44.9, adult: Code(s): E66.01 - Morbid (severe) obesity due to excess calories; Z68.41 - Body mass index [BMI] 40.0-44.9, adult Status: Acute Assessment and Plan: * Life style modifications * Education * Consider soup mixer consult (4) Acute respiratory failure with hypoxia: Code(s): J96.01 - Acute respiratory failure with hypoxia Status: Acute Assessment and Plan: * Secondary to COVID-19 pneumonia * Reports O2 sats down to 70% at home * Hypoxic down to 84% on presentation * Continue supplemental oxygen as needed with goal saturations 92% or above * Currently on room air * No PE on CTA (5) Pneumonia due to COVID-19 virus: Code(s): U07.1 - COVID-19; J12.82 - Pneumonia due to coronavirus disease 2018 Status: Acute Assessment and Plan: * Symptom onset 06/02/2022. Positive PCR test on 06/11/2021. CXR shows diffuse lung disease consistent with COVID 19 pneumonia * Continue isolation precautions * Continue dexamethasone and remdesivir #10 today. Monitor LFTs. ALT 33 * Continue levofloxacin for secondary bacterial coverage given onset of illness and clinical symptoms. * sputum culture ordered and pending * Supportive care to include bronchodilators, expectorants, antipyretics, incentive spirometry * inflammatory markers: Ferritin 404, LDH 510, CRP 0.6, Dimer 0.25 * Patient has not received vaccination for COVID-19 (6) Hypothyroidism: Qualifiers: Hypothyroidism type: unspecified Qualified Code(s): E03.9 - Hypothyroidism, unspecified Code(s): E03.9 - Hypothyroidism, unspecified Status: Acute Assessment and Plan: * TSH 0.666 * Continue Levothyroxine 125mcg (7) Hypertension: Qualifiers: Hypertension type: unspecified Qualified Code(s): I10 - Essential (primary) hypertension Code(s): I10 - Essential (primary) hypertension Status: Acute Assessment and Plan: * Current 98/57 * Amlodipine 10mg PO, HTCZ 25mg PO, Lisinpril 5mg PO Daily * Trend BP * Adjust therapy as indicated Time Spent With Patient Time with patient: Greater than 35 minutes Subjective Date/time seen: 06/20/21 0900 Interval history: 06/12/21 Secondary to COVID-19 pneumonia. Reports O2 sats down to 70% at home. Hypoxic down to 84% on presentation Continue supplemental oxygen as needed with goal saturations 92% or above Currently requiring 7 L per high-flow nasal cannula and maintaining adequate O2 saturations. No PE on CTA Symptom onset 06/02/2022. Positive PCR test on 06/11/2021. CXR shows diffuse lung disease consistent with COVID 19 pneumonia Continue isolation precautions Continue dexamethasone and remdesivir #3 today. Monitor LFTs. ALT 90 Consider addition of baricitinib if worsening oxygen demand Continue levofloxacin for secondary bacterial coverage given onset of illness and clin
[2021-06-20] MEDS: FUROSEMIDE INJ 40 MG/4 ML VIAL 20 MG IV PUSH (13:25)
[2021-06-20] MEDS: REMDESIVIR 100 MG/NS 250 ML 100 MG/250 ML BAG 250 MG IVPB (21:16)
[2021-06-21] VITALS (11 sets, daily range): BP systolic 105–137; BP diastolic 57–74; PULSE 74–130; RESP 14–20; TEMP 35.8–36.4; O2SAT 93–98
[2021-06-21] MEDS: IPRATROPIUM BR 0.02% INH SOLN 0.5 MG/2.5 ML VIAL INHALATION ×3 (04:04→14:22)
[2021-06-21] MEDS: LEVOTHYROXINE SODIUM 50 MCG TABLET PO (06:03)
[2021-06-21 06:57] LABS: Basophils Percent Auto 0.3 % (0.2-1.2); Eosinophils Percent Auto 0.3 % (0-4.4); Hematocrit 36.3 % (37.0-47.0); Hemoglobin 12.2 g/dL (12.0-15.0); Immature Granulocyte Absolute 0.15 K/mm3 (0.00-0.031); Immature Granulocyte Percent A 1.5 % (0-0.5); Lymphocytes Absolute Auto 1.99 K/mm3 (0.9-3.2); Lymphocytes Percent Auto 19.6 % (18.3-44.2); Mean Corpuscular HGB Conc 33.6 g/dl (32-36); Mean Corpuscular Hemoglobin 32.8 pg (26-34); Mean Corpuscular Volume 97.6 fl (80-100); Monocytes Absolute Auto 1.4 K/mm3 (0.1-0.6); Monocytes Percent Auto 13.6 % (2.6-8.5); Neutrophils Absolute Auto 6.6 K/mm3 (1.3-6.7); Neutrophils Percent Auto 64.7 % (45.5-73.1); Platelet Count Result 493 k/mm3 (150-375); Red Blood Count 3.72 M/mm3 (4.2-5.4); Red Cell Distribution Width 13.4 % (11.5-14.5); White Blood Count 10.1 K/mm3 (4.5-10.0)
[2021-06-21 07:02] LABS: Alanine Aminotransferase 32 U/L (4-35); Albumin Level 3.2 g/dL (3.5-5.1); Alkaline Phosphatase 107 U/L (38-126); Anion Gap 6 mmol/L (8-16); Aspartate Amino Transferase 23 U/L (14-36); Bilirubin,Total 0.5 mg/dL (0.2-1.3); Blood Urea Nitrogen 14 mg/dL (7-17); CRP 0.7 mg/dL (<1.0); Calcium 8.7 mg/dL (8.4-10.2); Carbon Dioxide 33 mmol/L (22-30); Chloride 96 mmol/L (98-107); Estimated CRCL calculation 94 ml/min; Estimated Glomerular Filt Rate > 60; Glucose 93 mg/dL (65-110); Lactate Dehydrogenase 532 U/L (313-618); Magnesium 2.2 mg/dL (1.6-2.3); Potassium 4.3 mmol/L (3.4-5.0); Sodium 135 mmol/L (137-145)
[2021-06-21 07:03] LABS: D Dimer 0.36 ug/mL (<0.48)
[2021-06-21] MEDS: amLODIPine BESYLATE 5 MG TABLET 10 MG PO (07:58)
[2021-06-21] MEDS: buPROPion HCL XL (24 HR) 150 MG TABCR PO (07:58)
[2021-06-21] MEDS: lisinopriL 5 MG TABLET PO (07:59)
[2021-06-21] MEDS: PANTOPRAZOLE 40 MG TABLET PO (07:59)
[2021-06-21] MEDS: guaiFENesin 12 HR 600 MG TABCR PO (07:59)
[2021-06-21] MEDS: FOLIC ACID 1 MG TABLET PO (07:59)
[2021-06-21] MEDS: CYANOCOBALAMIN 1,000 MCG TABLET 1000 MCG PO (07:59)
[2021-06-21] MEDS: ENOXAPARIN 40 MG/0.4 ML SYRINGE SUB-Q (07:59)
[2021-06-21] MEDS: NEOMYCIN/POLYMYXIN/BACITRACIN OPHTH OINTMENT 3.5 GM TUBE 1 APPLIC EACH EYE (08:00)
[2021-06-21] MEDS: carisoprodoL (*CRX) 350 MG TABLET PO (08:10)
--- NOTE | 2021-06-21 09:02 | PCNFU ---
Nutrition Follow-Up Complete: Inadequate oral intake related to covid pneumonia as evidenced by reported intake of 20% Goal: Meet nutritional needs Pt is progressing towards goal Pt current nutrition is heart healthy and dietary supplement Last recorded weight is 117.5 kg. Bowel Motility: No new BM reported, LBM several days ago - pt states this is her normal Labs Reviewed: Cl 96, hct 36.6, alb 3.2, Na 135, CO2 22, ferritin 368 Meds Noted: norvasc, wellbutrin xl, soma, vitamin B12, lovenox, folic acid, mucinex, synthroid, prinivil, protonix Skin: No new skin break down at this time, WNL Additional Notes: Per EMR, pt is on a heart healthy diet and dietary supplement of ensure compact providing an additional 220kcal and 9g of protein to increase caloric intake. Reported intake is 80%, 90%, 100% x2, and 95%. Pt is tolerating diet with adequate intake. Agree with diet orders at this time. Will continue to follow. Will monitor labs, medications, wt, and reported intake every 7 days
[2021-06-21] MEDS: FUROSEMIDE INJ 40 MG/4 ML VIAL IV PUSH (10:16)
--- NOTE | 2021-06-21 12:00 | PCRCNOTE ---
Patient does not require home O2 at this time. RN notified.
== END 2021-06-21 14:46 | disposition home or self-care (01) | DRG 177 ==
LOC: ANHED 21:16 → ANH3MEDSUR 23:14 → ANHIMU 06-13 12:29 → ANH3MEDSUR 06-20 15:26 → ANHIMU 06-22 12:01
PROVIDERS: Hospitalist; Physician Assistant; Admitting Provider Internal Medicine; Emergency Provider Emergency Medicine; PCP Family Medicine; Visit Provider Nurse Practitioner
DX: U07.1 COVID-19 (principal); J12.82 Pneumonia due to coronavirus disease 2019; J96.01 Acute respiratory failure with hypoxia; Z68.42 Body mass index [BMI] 45.0-49.9, adult; N17.9 Acute kidney failure, unspecified; E66.01 Morbid (severe) obesity due to excess calories; E87.8 Other disorders of electrolyte and fluid balance, not elsewhere classified; F41.1 Generalized anxiety disorder; I10 Essential (primary) hypertension; E03.9 Hypothyroidism, unspecified; Z28.21 Immunization not carried out because of patient refusal; Z79.899 Other long term (current) drug therapy; Z88.0 Allergy status to penicillin; Z88.1 Allergy status to other antibiotic agents
CPT/HCPCS: 36415; 36600; 71045; 71275; 80053; 81001; 82375; 82565; 82728; 82805; 82948; 83050; 83605; 83615; 83735; 83880; 84443; 84450; 84460; 84484; 85025; 85027; 85380; 85610; 85730; 86140; 87040; 87804; 93005; 94618; 94640; 96361; 96365; 96366; 96367; 96372; 96375; 97161; 97165; 99285; A9270; C9803; G0378; J0131; J1100; J1650; J1940; J1956; J2060; J2405; J7030; Q9967; U0003; U0005

== ENCOUNTER 2021-06-30 13:46 | Outpatient (CLI) | payer OTHER, SELFPAY ==
--- NOTE | ~2021-06-30 | US_ITS ---
EXAMINATION: US venous doppler UE DATE: 06/30/2021 14:29 INDICATION: Left arm pain TECHNIQUE: Baer scale images with and without compression and Doppler images of the right and left up per extremity veins were obtained. COMPARISON: None. FINDINGS: The right and left internal jugular vein, subclavian vein, axillary vein, brachial veins, basilic vei n, cephalic vein, radial vein, and ulnar vein are patent. IMPRESSION: 1. Patent bilateral upper extremity veins. No evidence of deep venous thrombosis. Reviewed, dictated and finalized at location B. UMER INSIGHTS SPECIALIST IMPRESSION: 1. Patent bilateral upper extremity veins. No evidence of deep venous thrombosi s.
== END 2021-06-30 13:47 | disposition home or self-care (01) ==
LOC: ANHIMG 13:54
PROVIDERS: PCP Family Medicine; Visit Provider Nurse Practitioner Family
DX: M79.602 Pain in left arm (principal)
CPT/HCPCS: 93970

== ENCOUNTER → 2021-07-26 14:04 | Outpatient (CLI) | payer OTHER, SELFPAY ==
--- NOTE | ~2021-07-26 | XR_ITS ---
EXAMINATION: XR chest 2V 07/26/2021 14:41 INDICATION: Previous Covid infection PROCEDURE: 2 view chest COMPARISON: Comparison to multiple prior studies sequentially, with oldest reviewed study dated 02/2022. FINDINGS: The lungs are clear. The cardiomediastinal silhouette is within normal limits. There are no pleural effusions. There is no pneumothorax suspected. Interval resolution of pneumonia. Calcifi ed granuloma right mid thorax. IMPRESSION: 1: NO ACUTE CARDIOPULMONARY DISEASE. Reviewed, dictated and finalized at location B. RGROUND FOREMAN
== END ==
PROVIDERS: PCP Family Medicine; Visit Provider Nurse Practitioner Family
DX: U07.1 COVID-19 (principal); J12.82 Pneumonia due to coronavirus disease 2019
CPT/HCPCS: 71046

== ENCOUNTER → 2021-08-25 14:55 | Outpatient (CLI) | payer OTHER, SELFPAY ==
--- NOTE | ~2021-08-25 | XR_ITS ---
EXAMINATION: XR lumbar spine 2-3V EXAM DATE: 08/25/2021 15:08 INDICATION: M54.50 - Low back pain, unspecified. TECHNIQUE: Lumber spine frontal, lateral, lateral L5-S1 projections for interpretation. There is no prior study for comparison. FINDINGS: There is moderate to severe disc disease L5-S1. The vertebral body and disc heights are ot herwise well maintained. Mild to moderate lumbar facet arthropathy. There are no acute fractures darrell ntified. There are no bony erosions identified. Sacrum, sacroiliac joints, sacral arcuate lines are i ntact. Paraspinal soft tissue is unremarkable. IMPRESSION: 1. L5-S1 moderate to severe disc disease. 2. Mild to moderate facet arthropathy. Reviewed, dictated and finalized at location G.
== END ==
PROVIDERS: Visit Provider Nurse Practitioner Family
DX: M51.36 Other intervertebral disc degeneration, lumbar region (principal)
CPT/HCPCS: 72100

== ENCOUNTER 2021-09-14 08:57 | Outpatient (CLI) | payer OTHER, SELFPAY ==
--- NOTE | 2021-09-14 12:28 | WPDPFTINT ---
PFT Procedure Performed PFT Procedure Performed Spirometry with Pre/Post Bronchodilator Plethysmography (Lung Vol) Diffusing Cap (DLCO) Flow Vol Loop PFT Interpretation This is a pulmonary function test with pre and post-bronchodilator spirometry, plethysmography and diffusing capacity. The test was performed and results interpreted in accordance with the 2019 and 2005 ATS/ERS Task Force guidelines respectively using the Global Lung Function Initiative-2012 reference equations. Patient demonstrated good effort and cooperation. Reproducibility criteria were met. The quality of the pre bronchodilator spirometry maneuver was Grade A and post bronchodilator spirometry maneuver was Grade A. Findings: Spirometry: The contour the inspiratory and expiratory flow tracing are normal. The pre bronchodilator FVC is 3.10 L, 96% predicted. The pre bronchodilator FEV1 is 2.49 L, 98% predicted. The pre bronchodilator FEV1: FVC ratio was 80%. The post bronchodilator FVC is 3.09 L, representing no change. The post bronchodilator FEV1 is 2.55 L, representing a 2% increase. The post bronchodilator FEV1: FVC ratio was 83%. Plethysmography: The total lung capacity is 4.71 L, 93% predicted. Functional residual capacity is 2.09 L, 73% predicted. The residual volume is 1.59 L, 81% predicted. Diffusing capacity: The diffusing capacity on adjusted for hemoglobin and carboxyhemoglobin is 15.4, 71% predicted. The diffusing capacity adjusted for alveolar volume is 3.72, 83% predicted. Impression: The spirometry is normal without evidence of an obstructive abnormality. There is no significant improvement after inhaling a single dose of albuterol. The lung volumes are normal. The diffusing capacity is normal. There are no prior studies for comparison
== END 2021-09-14 08:58 | disposition home or self-care (01) ==
PROVIDERS: PCP Family Medicine; Visit Provider Nurse Practitioner Family
DX: R06.02 Shortness of breath (principal); U09.9 Post COVID-19 condition, unspecified
CPT/HCPCS: 94060; 94726; 94729

== ENCOUNTER → 2021-11-08 16:09 | Outpatient (CLI) | payer OTHER, SELFPAY ==
--- NOTE | ~2021-11-08 | XR_ITS ---
XR tibia fibula LT 2V DATE: 11/08/2021 16:28 INDICATION: Lower leg pain TECHNIQUE: AP and lateral views COMPARISON: None FINDINGS: No fracture or dislocation, periosteal reaction or bone destruction of the tibia or fibula. Normal alignment and preservation of joint spaces at the knee and ankle joints. IMPRESSION: Negative Reviewed, dictated and finalized at location A. IMPRESSION: Negative
== END ==
PROVIDERS: PCP Internal Medicine Endocrinology, Diabetes & Metabolism; Visit Provider Internal Medicine Endocrinology, Diabetes & Metabolism
DX: M79.605 Pain in left leg (principal)
CPT/HCPCS: 73590

== ENCOUNTER 2021-12-09 08:54 | Emergency (ER) | payer OTHER, SELFPAY ==
[2021-12-09] VITALS (17 sets, daily range): BP systolic 121–146; BP diastolic 77–85; PULSE 65–97; RESP 11–20; O2SAT 100
--- NOTE | ~2021-12-09 | XR_ITS ---
EXAMINATION: XR chest 2V DATE: 12/09/2021 09:22 INDICATION: Left sided chest pain radiating into the arms and neck TECHNIQUE: PA and lateral views of the chest were obtained. COMPARISON: 07/26/2021 FINDINGS: Eventration along the right hemidiaphragm. Calcified nodule at the right midlung zone consistent with old granulomatous disease. No other airspace opacities, pulmonary edema, pleural effusion or pneumot horax. The cardiomediastinal silhouette is normal. Mild thoracic spondylosis. IMPRESSION: 1. No acute cardiopulmonary disease. Reviewed, dictated and finalized at location A.
--- NOTE | 2021-12-09 08:57 | ECG_ITS ---
Measurements Intervals [place] Rate: 63 P: -1 UT: 161 QRS: -13 QRSD: 97 T: 7 QT: 401 QTc: 412 Interpretive Statements SINUS RHYTHM MINIMAL Q WAVES- HIGH LATERAL LEADS BORDERLINE ECG Electronically Signed On 12-09-2021 15:33:20 CDT by Ge Richmond D.O.
--- NOTE | 2021-12-09 09:00 | ED.CHESTPAIN ---
HPI - Chest Pain General Chief Complaint: Chest Pain <TAYA Thacker Last Filed: 12/09/21 18:21> Stated Complaint: chest pain, sob <TAYA Thacker Last Filed: 12/09/21 18:21> Time Seen by Provider: 12/09/21 09:00 <TAYA Thacker Last Filed: 12/09/21 18:21> Source: patient <TAYA Thacker Last Filed: 12/09/21 18:21> Mode of arrival: ambulatory <TAYA Thacker Last Filed: 12/09/21 18:21> Limitations: no limitations <TAYA Thacker Last Filed: 12/09/21 18:21> History of Present Illness HPI narrative: Patient is a 61 y/o female who presents to the ED with c/o CP. Patient reports she was woken up in her sleep at 6 am this morning with pain in her L sided neck and shoulder. The pain then began to radiate down her L arm and into her L sided chest. She states the pain seems to also radiate through to her L upper back. She describes the pain as a pressure and squeezing. Pain has been constant and worsening since she woke up. She also reports feeling slightly lightheaded with the pain, but denies any shortness of breath, nausea, vomiting, abdominal pain, recent fever, cough, cold symptoms. Patient has chronic swelling in her BLE. Denies any recent pain in BLE. Patient has history of hypertension, morbid obesity, anxiety. She reports family history of CAD in her father in his 60s. Denies Hx of HLD, DM, smoking. She states she had a cardiac evaluation 1.5 years ago in [place], [place], which was normal. She is unsure if she had a stress test at that time, however. <TAYA Thacker Last Filed: 12/09/21 18:21> Related Data Home Medications: Home Medications Medication Instructions Recorded Confirmed ergocalciferol (vitamin D2) 1,250 1,250 mcg PO WEEKLY 11/14/20 12/07/21 mcg (50,000 unit) capsule folic acid 1 mg tablet 1 mg PO DAILY 11/14/20 12/07/21 levothyroxine 50 mcg capsule 50 mcg PO EVERY OTHER DAY 11/14/20 12/07/21 (Tirosint) levothyroxine 75 mcg capsule 75 mcg PO .every other day 11/14/20 12/07/21 (Tirosint) <Yuli Frey PA-C - Last Filed: 12/09/21 18:21> Allergies/Adverse Reactions: Allergies Allergy/AdvReac Type Severity Reaction Status Date / Time Penicillins Allergy Intermediate Swelling, Verified 12/09/21 09:08 hives, dizziness erythromycin base Allergy Mild Abdominal Verified 12/09/21 09:08 Pain, nausea Sulfa (Sulfonamide Allergy Mild Hives Verified 12/09/21 09:08 Antibiotics) latex Allergy Unknown swelling Verified 12/09/21 09:08 procaine [From Novocain] Allergy Swelling Verified 12/09/21 09:08 <Yuli Frey PA-C - Last Filed: 12/09/21 18:21> Review of Systems Review of Systems: CONSTITUTIONAL: Denies fever, chills, or sweats. ENT: Denies rhinorrhea, congestion. CARDIOVASCULAR: Reports L sided CP, chronic BLE edema. RESPIRATORY: Denies cough or dyspnea. GASTROINTESTINAL: Denies abdominal pain, nausea, vomiting, or diarrhea. GENITOURINARY: Denies dysuria or hematuria. MUSCULOSKELETAL: Reports L neck/shoulder/arm/upper back pain. Denies BLE pain. NEUROLOGIC: Reports lightheadedness. Denies headache, numbness, or weakness. <Yuli Frey PA-C - Last Filed: 12/09/21 18:21> All systems reviewed & are unremarkable except as noted in HPI and below <Yuli Frey PA-C - Last Filed: 12/09/21 18:21> [facility] Past Medical History Medical History: Medical History Acid reflux Anemia Anxiety BMI greater than 40 COVID Hypertension Hypothyroidism In vitro fertilization 1992 Migraine Missed x1 Tubal x1 Vaginal delivery x1 <Yuli Frey PA-C - Last Filed: 12/09/21 18:21> Surgical History Surgical History: Surgical History History of dilation and curettage 1996 History of endometrial ablation 2007 History of lapa
--- NOTE | 2021-12-09 09:02 | ECG_ITS ---
Measurements Intervals [place] Rate: 85 P: 43 HI: 154 QRS: -17 QRSD: 100 T: 50 QT: 349 QTc: 416 Interpretive Statements SINUS RHYTHM BASELINE ARTIFACT- I, II, III, AVR, AVF NORMAL ECG Electronically Signed On 12-11-2021 10:41:04 CDT by Ge Richmond D.O.
[2021-12-09] MEDS: ASPIRIN 81 MG CHEWABLE TABLET 324 MG PO (09:11)
[2021-12-09 09:16] LABS: Basophils Percent Auto 0.5 % (0.2-1.2); Eosinophils Absolute Auto 0.1 K/mm3 (0-0.3); Eosinophils Percent Auto 1.9 % (0-4.4); Hematocrit 39.6 % (37.0-47.0); Hemoglobin 13.2 g/dL (12.0-15.0); Immature Granulocyte Absolute 0.02 K/mm3 (0.00-0.031); Immature Granulocyte Percent A 0.3 % (0-0.5); Lymphocytes Absolute Auto 1.53 K/mm3 (0.9-3.2); Lymphocytes Percent Auto 24.5 % (18.3-44.2); Mean Corpuscular HGB Conc 33.3 g/dl (32-36); Mean Corpuscular Hemoglobin 32.6 pg (26-34); Mean Corpuscular Volume 97.8 fl (80-100); Mean Platelet Volume 10.6 fl (7.4-10.4); Monocytes Absolute Auto 0.6 K/mm3 (0.1-0.6); Monocytes Percent Auto 10.3 % (2.6-8.5); Neutrophils Absolute Auto 3.9 K/mm3 (1.3-6.7); Neutrophils Percent Auto 62.5 % (45.5-73.1); Platelet Count Result 341 k/mm3 (150-375); Red Blood Count 4.05 M/mm3 (4.2-5.4); Red Cell Distribution Width 12.6 % (11.5-14.5); White Blood Count 6.2 K/mm3 (4.5-10.0)
[2021-12-09 09:27] LABS: Prothrombin Time 12.6 Seconds (11.1-14.7)
[2021-12-09 09:28] LABS: Partial Thromboplastin Time 25.8 SECONDS (22.3-36.8)
[2021-12-09 09:54] LABS: Alanine Aminotransferase 19 U/L (6-35); Albumin Level 4.2 g/dL (3.5-5.1); Alkaline Phosphatase 107 U/L (38-126); Anion Gap 5 mmol/L (8-16); Aspartate Amino Transferase 24 U/L (14-36); Bilirubin,Total 0.3 mg/dL (0.2-1.3); Blood Urea Nitrogen 29 mg/dL (7-17); Calcium 8.9 mg/dL (8.4-10.2); Carbon Dioxide 29 mmol/L (22-30); Chloride 101 mmol/L (98-107); Estimated CRCL calculation 62 ml/min; Estimated Glomerular Filt Rate 51; Glucose 93 mg/dL (65-110); Lipase 61 U/L (23-300); Potassium 4.6 mmol/L (3.4-5.0); Sodium 135 mmol/L (137-145)
[2021-12-09 10:06] LABS: Troponin I < 0.012 ng/mL (0.000-0.034)
[2021-12-09] MEDS: SODIUM CHLORIDE 0.9% IV 1,000 ML 999 ML IV CONT (10:06)
[2021-12-09 10:08] LABS: D Dimer 0.37 ug/mL (<0.48)
--- NOTE | 2021-12-09 11:26 | PC.NURSE ---
Patient report given to JESSENIA Huber. All questions answered and care of pt transferred.
[2021-12-09 12:27] LABS: Troponin I < 0.012 ng/mL (0.000-0.034)
== END 2021-12-09 12:52 | disposition home or self-care (01) ==
PROVIDERS: Physician Assistant; Emergency Provider Emergency Medicine; PCP Internal Medicine Endocrinology, Diabetes & Metabolism
DX: R07.89 Other chest pain (principal); I10 Essential (primary) hypertension; E03.9 Hypothyroidism, unspecified; E66.01 Morbid (severe) obesity due to excess calories; Z68.41 Body mass index [BMI] 40.0-44.9, adult; F41.9 Anxiety disorder, unspecified; Z86.16 Personal history of COVID-19; Z86.2 Personal history of diseases of the blood and blood-forming organs and certain disorders involving the immune mechanism; R94.31 Abnormal electrocardiogram [ECG] [EKG]
CPT/HCPCS: 36415; 71046; 80053; 83690; 84484; 85025; 85380; 85610; 85730; 93005; 96365; 99284; A9270; J0131; J7030

== ENCOUNTER → 2022-08-14 16:32 | Outpatient (CLI) | payer OTHER, SELFPAY | PROVIDERS: PCP Family Medicine; Visit Provider Nurse Practitioner Family | DX: S89.91XA Unspecified injury of right lower leg, initial encounter (principal); X58.XXXA Exposure to other specified factors, initial encounter | CPT/HCPCS: 73564 ==

== ENCOUNTER 2022-08-28 08:26 | Outpatient (CLI) | payer OTHER, SELFPAY ==
--- NOTE | ~2022-08-28 | XR_ITS ---
Right ankle Technique: AP and lateral views were obtained. Clinical History: Pain Findings: No acute fracture or dislocation is seen. Osseous alignment is anatomic. Ankle mortise and other visualized joint spaces are preserved. Soft tissues are otherwise unremarkable. Impression: Unremarkable right ankle. Reviewed, dictated and finalized at location . Impression: Unremarkable right ankle.
--- NOTE | ~2022-08-28 | XR_ITS ---
Right foot Technique: AP and lateral views were obtained. Clinical History: Pain Findings: No acute fracture or dislocation is seen. Osseous alignment is anatomic. Plantar calcaneal spur noted. Joint spaces are preserved without erosive or degenerative change. Soft tissues are unrem arkable. Impression: No acute abnormality. Small plantar calcaneal spur. Reviewed, dictated and finalized at [facility]. Impression: No acute abnormality. Small plantar calcaneal spur.
== END 2022-08-28 08:27 ==
PROVIDERS: PCP Family Medicine; Visit Provider Nurse Practitioner Family
DX: M25.571 Pain in right ankle and joints of right foot (principal); M77.31 Calcaneal spur, right foot
CPT/HCPCS: 73600; 73620

== ENCOUNTER → 2023-07-22 15:56 | Outpatient (CLI) | payer BC, SELFPAY ==
--- NOTE | ~2023-07-22 | XR_ITS ---
Lumbosacral Spine: AP and lateral views Clinical History: Pain Findings: The normal lordotic curve is maintained. The vertebral bodies and posterior elements are i ntact. There is degenerative disc narrowing at L5-S1.. Mild facet arthropathy noted. The sacroiliac j oints are normally outlined. Impression: Mild degenerative spondylosis overall. Reviewed, dictated and finalized at [facility]. TENDER FLAKEBOARD Impression: Mild degenerative spondylosis overall.
--- NOTE | ~2023-07-22 | XR_ITS ---
Thoracic spine: Clinical Indication: Back pain AP and lateral views were performed. No fracture is seen. There is normal alignment of the vertebrae. The intervertebral disc spaces appe ar normal. Paravertebral soft tissues appear normal. Impression: No significant abnormalities noted. Reviewed, dictated and finalized at [facility]. CARE TRANSITION Impression: No significant abnormalities noted.
== END ==
PROVIDERS: PCP Nurse Practitioner Adult Health; Visit Provider Nurse Practitioner Adult Health
DX: M47.26 Other spondylosis with radiculopathy, lumbar region (principal)
CPT/HCPCS: 72072; 72100

== ENCOUNTER 2023-08-14 09:32 | Outpatient (CLI) | payer BC, SELFPAY ==
--- NOTE | 2023-08-14 11:00 | NEURO_ITS ---
Impression: # Non-Diabetic complains of lower back and leg pain # Asymmetrical sensory neuropathy. # Needle/EMG exam not neurogenic. # Clinical correlation recommended. Nerve Conduction Studies Anti Sensory Summary Table Stim Site NR Peak (ms) P-T Amp (?V) Site1 Site2 Delta-P (ms) Dist (cm) Omega (m/s) Left Saphenous Anti Sensory (Ant Med Mall) 14cm 3.3 29.2 14cm Ant Med Mall 3.3 0.0 Right Saphenous Anti Sensory (Ant Med Mall) 14cm 3.4 23.1 14cm Ant Med Mall 3.4 0.0 Left Sup Fibular Anti Sensory (Ant Lat Mall) 14 cm 3.3 3.0 14 cm Ant Lat Mall 3.3 16.0 48 Right Sup Fibular Anti Sensory (Ant Lat Mall) NO RESPONSE 14 cm NR 14 cm Ant Lat Mall 16.0 Left Sural Anti Sensory (Lat Mall) Calf 3.6 26.0 Calf Lat Mall 3.6 16.0 44 Right Sural Anti Sensory (Lat Mall) Calf 3.8 14.7 Calf Lat Mall 3.8 16.0 42 Motor Summary Table Stim Site NR Onset (ms) O-P Amp (mV) Site1 Site2 Delta-0 (ms) Dist (cm) Omega (m/s) Left Peroneal Motor (Vastus Med) Ankle 4.1 1.5 Popit Ankle 8.5 40.0 47 Popit 12.6 0.9 Right Peroneal Motor (Vastus Med) Ankle 3.9 1.1 Popit Ankle 8.1 39.0 48 Popit 12.0 0.8 Left Tibial Motor (Abd Herrera Brev) Ankle 4.3 0.7 Knee Ankle 8.7 42.0 48 Knee 13.0 1.1 Right Tibial Motor (Abd Herrera Brev) Ankle 4.2 5.8 Knee Ankle 9.5 42.0 44 Knee 13.7 0.5 F Wave Studies NR F-Lat (ms) L-R F-Lat (ms) Left Peroneal (Mrkrs) (EDB) 56.53 1.05 Right Peroneal (Mrkrs) (EDB) 57.58 1.05 Left Tibial (Mrkrs) (Abd Hallucis) 56.49 0.08 Right Tibial (Mrkrs) (Abd Hallucis) 56.41 0.08 EMG Side Muscle Nerve Root Ins Act Fibs Amp Dur Recrt Comment Right AntTibialis Dp Br Fibular L4-5 Nml Nml Nml Nml Nml Right Gastroc Tibial S1-2 Nml Nml Nml Nml Nml Right Fibularis Long Sup Br Fibular L5-S1 Nml Nml Nml Nml Nml Right Flex Dig Long Tibial L5-S2 Nml Nml Nml Nml Nml Right Ext Dig Brev Dp Br Fibular L5, S1 Nml Nml Nml Nml Nml Left AntTibialis Dp Br Fibular L4-5 Nml Nml Nml Nml Nml Left Gastroc Tibial S1-2 Nml Nml Nml Nml Nml Left Fibularis Long Sup Br Fibular L5-S1 Nml Nml Nml Nml Nml Left Flex Dig Long Tibial L5-S2 Nml Nml Nml Nml Nml Left Ext Dig Brev Dp Br Fibular L5, S1 Nml Nml Nml Nml Nml MTDD
== END 2023-08-14 09:33 | disposition home or self-care (01) ==
PROVIDERS: PCP Family Medicine; Visit Provider Nurse Practitioner Adult Health
DX: M54.10 Radiculopathy, site unspecified (principal)
CPT/HCPCS: 95886; 95911

== ENCOUNTER 2023-09-20 10:53 | Outpatient (CLI) | payer BC, SELFPAY ==
--- NOTE | ~2023-09-20 | MR_ITS ---
EXAMINATION: MR lumbar spine wo con DATE: 09/20/2023 11:23 INDICATION: Polyneuropathy. TECHNIQUE: Magnetic resonance imaging (MRI) of the lumbar spine was performed without intravenous con trast. Sequences included sagittal T2-weighted FSE, sagittal T2-weighted FS FSE, sagittal T1-weighted FSE, and axial T2-weighted FSE. COMPARISON: Radiographs dated 07/22/2023 FINDINGS: 1 mm retrolisthesis L2 on L3 and L3 on L4. Vertebral body heights are normal. Prominent Schmorl's nod e along the inferior endplate of L2. Severe disc height loss at L5-S1 with associated fibrofatty dege nerative endplate changes. Mild disc desiccation and mild disc height loss at T11-T12 and L2-L3 throu gh L4-L5. Mild fibrovascular degenerative endplate changes at the anterior superior endplate of L3. B one marrow signal is otherwise normal. The conus medullaris terminates at L1. There is normal signal in the caudal spinal cord. Paravertebral soft tissues are unremarkable. The following disc levels are specifically discussed: T11-T12: Annular fissure and small left paracentral disc protrusion. There is mild bilateral facet os teoarthritis. There is no neural foraminal stenosis. There is mild central canal stenosis with minima l indentation of the left ventral surface of the cord. T12-L1: Disc is mildly bulging. There is mild bilateral facet joint osteoarthritis. There is no neura l foraminal stenosis. There is no central canal stenosis. L1-L2: Disc is mildly bulging. There is mild bilateral facet joint osteoarthritis. There is no neural foraminal stenosis. There is no central canal stenosis. L2-L3: Disc is mildly bulging. There is mild hypertrophy of the ligamentum flavum. There is mild bila teral facet joint osteoarthritis. There is mild bilateral neural foraminal stenosis. There is mild ce ntral canal stenosis. L3-L4: Disc is mildly bulging. There is mild hypertrophy of the ligamentum flavum. There is mild bila teral facet joint osteoarthritis. There is mild bilateral neural foraminal stenosis. There is minimal central canal stenosis. L4-L5: Disc protrusion extending from foraminal zone to foraminal zone. There is moderate bilateral f acet joint osteoarthritis. There is mild bilateral neural foraminal stenosis. There is minimal centra l canal stenosis. L5-S1: Disc is mildly bulging with annular fissure. There is moderate bilateral facet joint osteoarth ritis. There is moderate left and mild to moderate right neural foraminal stenosis. There is no centr al canal stenosis. IMPRESSION: 1. Lumbar spondylosis, severe at L5-S1 and otherwise mild. Reviewed, dictated and finalized at location A.
== END 2023-09-20 10:54 ==
LOC: MICIMG 10:54
PROVIDERS: PCP Nurse Practitioner Adult Health; Visit Provider Nurse Practitioner Adult Health
DX: G62.9 Polyneuropathy, unspecified (principal); M47.896 Other spondylosis, lumbar region
CPT/HCPCS: 72148

== ENCOUNTER 2023-09-25 08:38 | Emergency (ER) | payer BC, SELFPAY ==
--- NOTE | ~2023-09-25 | XR_ITS ---
XR ankle LT min 3V, XR foot RT min 3V 09/25/2023 10:32 Indication: Left ankle pain after fall Procedure: 4 views left ankle and 4 views left foot Comparison: 01/09/2019 Findings: There is an acute avulsion fracture from the distal aspect of the fibula. Moderate diffuse soft tissue swelling, more prominent laterally. No other fracture. There is a degenerative calcaneal enthesophyte at the plantar surface. Impression: 1: Acute nondisplaced avulsion fracture tip of the fibula. Reviewed, dictated and finalized at location B. Impression: 1: Acute nondisplaced avulsion fracture tip of the fibula. Impression: 1: Acute nondisplaced avulsion fracture tip of the fibula.
--- NOTE | ~2023-09-25 | XR_ITS ---
XR knee LT 3V, XR tibia fibula LT 2V 09/25/2023 13:00 Indication: Left knee and leg pain after fall Procedure: 3 views left knee and 2 views left tibia/fibula Comparison: No prior studies for comparison. Findings: There is cortical discontinuity of the distal femur, seen on the lateral view anteriorly. M ild osteoarthritis of the patellofemoral compartment. Small joint effusion. There is an avulsion frac ture of the distal aspect of the fibula which appears acute. Moderate soft tissue swelling or promine nce laterally. Impression: 1: Acute avulsion fracture distal aspect of the left fibula. 2: Cortical discontinuity along the distal anterior margin of the femur, seen on lateral view only. C onsider correlation with MRI. Reviewed, dictated and finalized at location B. Impression: 1: Acute avulsion fracture distal aspect of the left fibula. 2: Cortical discontinuity along the distal anterior margin of the femur, seen o n lateral view only. Consider correlation with MRI. Impression: 1: Acute avulsion fracture distal aspect of the left fibula. 2: Cortical discontinuity along the distal anterior margin of the femur, seen o n lateral view only. Consider correlation with MRI.
[2023-09-25 08:41] VITALS: BP 123/75; PULSE 70; RESP 16; TEMP 36.4; O2SAT 100
--- NOTE | 2023-09-25 12:06 | ED.FALL ---
HPI - Fall General Chief Complaint: Fall Stated Complaint: fall, hx neuropathy Time Seen by Provider: 09/25/23 11:57 History of Present Illness HPI Narrative: Patient is a 63-year-old female with history of chronic back pains and associated neuropathy here today after a fall. She states that she was leaving her house and tripped and fell twisting her left ankle and rolling to the ground. She notes she landed on her back and did not hit her head. She is currently complaining of left leg and ankle pain and right foot pain. She denies loss of consciousness. She does not take any blood thinners. She has not taken anything for pain today. Related Data Home Medications Medication Instructions Recorded Confirmed folic acid 1 mg tablet 1 mg PO DAILY 11/14/20 08/07/23 spironolactone 50 mg tablet 50 mg PO DAILY 03/08/22 08/07/23 Allergies Allergy/AdvReac Type Severity Reaction Status Date / Time Penicillins Allergy Intermediate Swelling, Verified 09/25/23 12:46 hives, dizziness erythromycin base Allergy Mild Abdominal Verified 09/25/23 12:46 Pain, nausea Sulfa (Sulfonamide Allergy Mild Hives Verified 09/25/23 12:46 Antibiotics) latex Allergy Unknown swelling Verified 09/25/23 12:46 procaine [From Novocain] Allergy Swelling Verified 09/25/23 12:46 cefuroxime AdvReac Intermediate Hives Verified 09/25/23 12:46 ibuprofen [From Advil] AdvReac Swelling Verified 09/25/23 12:46 Review of Systems Review of Systems: All systems reviewed & are unremarkable except as noted in HPI and below PMFSH Past Medical History Medical History (Updated 09/25/23 @ 14:36 by Yoli Ornelas MD) Acid reflux Adult BMI 45.0-49.9 kg/sq m Anemia Anxiety BMI greater than 40 CKD (chronic kidney disease) COVID Diarrhea Hypercholesteremia Hypertension Hypothyroidism In vitro fertilization 1992 Lumbar spine pain Lumbar spondylolysis Migraine Missed x1 Morbid (severe) obesity due to excess calories Neuropathy Numbness in both hands Obesity, morbid, BMI 40.0-49.9 DILIP (obstructive sleep apnea) Radiculopathy Screening for thyroid disorder Seasonal allergies Sinusitis Thoracic back pain Tubal x1 Upper back pain Vaginal delivery x1 Surgical History Surgical History History of dilation and curettage 1996 History of endometrial ablation 2007 History of laparoscopy x3 Previous section x1 S/P cryotherapy of skin lesion 1985, of cervix [place] teeth extracted 1985 Family History Family History Father Heart problem Acute myocardial infarction Mother Hypertension Grandparent Melanoma Hypertension Depression Heart problem Cerebrovascular accident Sibling Arrhythmia Social History Social History (Updated 09/12/23 @ 13:04 by ROBBI uMnoz) Smoking status: Never smoker Second hand tobacco smoke exposure: No Alcohol intake: never Substance use: never Substance use type: does not use Do You Feel Safe in your Home?: Yes Lack of Transportation: No Lack of Food: Never True Current Housing: I Have Housing Concerned About Future Housing: No Difficulty Paying Gas/Electric Bills: No Difficulty Paying for Meds: No Currently Unemployed: No Education: Master's Degree or Higher Difficulty w/ Childcare or Family Care: No Living arrangements: with family Occupation/Education: occupation 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 Gender identity (if verbalized by the patient): Female Spiritual care concerns: No Exam Narrative: GENERAL: Well-appearing, well-nourished, and in no acute distress. HEAD: Normocephalic, atraumatic. EYES: PERRLA and EOMI. ENT: Nares clear. Mucous membranes moist. NECK: Supple. CHEST: Clear to auscultation. No respiratory distress
[2023-09-25] MEDS: HYDROcodone/acetaminophen (*CRX) 5-325 MG TABLET 1 TAB PO (12:45)
== END 2023-09-25 15:10 | disposition home or self-care (01) ==
PROVIDERS: Emergency Provider Student in an Organized Health Care Education/Training Program; PCP Family Medicine
DX: S82.832A Other fracture of upper and lower end of left fibula, initial encounter for closed fracture (principal); W19.XXXA Unspecified fall, initial encounter; E66.01 Morbid (severe) obesity due to excess calories; Z68.42 Body mass index [BMI] 45.0-49.9, adult; E03.9 Hypothyroidism, unspecified; N18.9 Chronic kidney disease, unspecified; I12.9 Hypertensive chronic kidney disease with stage 1 through stage 4 chronic kidney disease, or unspecified chronic kidney disease; E78.00 Pure hypercholesterolemia, unspecified; G47.33 Obstructive sleep apnea (adult) (pediatric)
CPT/HCPCS: 29515; 73562; 73590; 73610; 73630; 99284; A9270

== ENCOUNTER 2023-10-05 14:12 | Emergency (ER) | payer BC, SELFPAY ==
[2023-10-05] VITALS (18 sets, daily range): BP systolic 105–129; BP diastolic 56–78; PULSE 84–103; RESP 12–20; TEMP 36.2; O2SAT 93–100
--- NOTE | ~2023-10-05 | XR_ITS ---
EXAM: XR knee LT 3V DATE: 10/05/2023 16:36 HISTORY: fall . COMPARISON: 09/25/2023. FINDINGS: Normal mineralization. Cortical discontinuity at the anterior distal femur, seen only in t he lateral view. No lytic or blastic lesion. Mild tricompartmental knee osteoarthritis. No erosion or periosteal change. Soft tissues within normal limits. IMPRESSION: Cortical discontinuity of the anterior distal femur, may represent degenerative change at the trochlear groove or healing fracture. Consider CT of the left knee for further evaluation. Reviewed, dictated and finalized at location K.
--- NOTE | ~2023-10-05 | CT_ITS ---
EXAMINATION: CT lumbar spine wo con DATE: 10/05/2023 16:53 INDICATION: fall . TECHNIQUE: Computed tomography (CT) of the lumbar spine was performed without intravenous contrast. A utomated exposure control and iterative reconstruction technique were employed. The dose-length produ ct was 1102.76 mGy-cm. COMPARISON: MR L-spine 09/20/2023. FINDINGS: 5 nonrib-bearing lumbar-type vertebral bodies. Pedicles intact. Trace retrolistheses at L2- 3 and L3-4, stable, otherwise normal vertebral body alignment. Vertebral body heights preserved. Pool Finisher denise inferior endplate abnormality and Schmorl's node at L2. Severe degenerative disc disease at L5-S1 . Mild degenerative disc changes at the remaining lumbar levels. Mild multilevel facet arthropathy. IMPRESSION: No acute fracture or traumatic malalignment in the lumbar spine. No severe central canal or neural fo raminal narrowing. Reviewed, dictated and finalized at location K. IMPRESSION: No acute fracture or traumatic malalignment in the lumbar spine. No severe cent ral canal or neural foraminal narrowing.
--- NOTE | ~2023-10-05 | CT_ITS ---
CT OF left hip EXAMINATION: CT hip LT wo con DATE: 10/05/2023 16:53 INDICATION: Fall TECHNIQUE: Computed tomography (CT) of the left hip was performed without intravenous contrast. Autom ated exposure control and iterative reconstruction technique were employed. The dose-length product w as 505.50 mGy-cm. COMPARISON: Left lower extremity venous ultrasound, same date FINDINGS: Normal mineralization. Mild degenerative change in the left hip. SI joints are intact. No f racture or dislocation. No lytic or blastic lesion. No periosteal changes. Perivenous stranding likel y secondary to the extensive left lower extremity DVT identified in the prior venous ultrasound. Aleja onal soft tissues are otherwise within normal limits. IMPRESSION: No acute osseous finding the left hip Reviewed, dictated and finalized at location K.
--- NOTE | ~2023-10-05 | US_ITS ---
EXAMINATION: US venous doppler [facility] DATE: 10/05/2023 16:23 INDICATION: Left lower extremity pain and swelling. TECHNIQUE: Grayscale images without and with compression and Doppler images of the left lower extremi ty veins were obtained. COMPARISON: 01/27/2019 FINDINGS: Acute thrombus involving the left common femoral vein, profunda (deep) femoral vein, femoral vein, p opliteal vein, peroneal vein, posterior tibial veins, gastrocnemius vein, and greater saphenous vein are patent. IMPRESSION: Extensive mostly occlusive thrombus involving all visualized veins in the left lower extremity. Reviewed, dictated and finalized at location K.
--- NOTE | 2023-10-05 15:54 | ED.EXTPRO ---
HPI - Extremity Problem General Chief complaint: Extremity Problem,Nontraumatic Stated complaint: leg pain Time Seen by Provider: 10/05/23 14:51 Source: patient and family Mode of arrival: ambulatory Limitations: no limitations History of Present Illness HPI Narrative: PATIENT IS STATUS POST LEFT ANKLE FRACTURE SEPTEMBER 25, 2023, WAS DISCHARGED ON LEFT LOWER LEG BOOT. YESTERDAY PATIENT STARTED HAVING PAIN START AT THE GROIN AREA ALL THE WAY DOWN TO THE BACK OF HER LEFT LOWER LEG. WITH SWELLING. SHE DENIES CHEST PAIN OR SHORTNESS OF BREATH. PATIENT LYING DOWN IN BED SINCE THE ANKLE FRACTURE ANTI NOW. Related Data Home Medications Medication Instructions Recorded Confirmed folic acid 1 mg tablet 1 mg PO DAILY 11/14/20 09/30/23 spironolactone 50 mg tablet 50 mg PO DAILY 03/08/22 09/30/23 Allergies Allergy/AdvReac Type Severity Reaction Status Date / Time Penicillins Allergy Intermediate Swelling, Verified 10/05/23 14:56 hives, dizziness erythromycin base Allergy Mild Abdominal Verified 10/05/23 14:56 Pain, nausea Sulfa (Sulfonamide Allergy Mild Hives Verified 10/05/23 14:56 Antibiotics) latex Allergy Unknown swelling Verified 10/05/23 14:56 procaine [From Novocain] Allergy Swelling Verified 10/05/23 14:56 cefuroxime AdvReac Intermediate Hives Verified 10/05/23 14:56 ibuprofen [From Advil] AdvReac Swelling Verified 10/05/23 14:56 Review of Systems Review of Systems: All systems reviewed & are unremarkable except as noted in HPI and below PMFSH Past Medical History Medical History Acid reflux Adult BMI 45.0-49.9 kg/sq m Anemia Anxiety BMI greater than 40 CKD (chronic kidney disease) COVID Diarrhea Fracture of distal end of left fibula Hypercholesteremia Hypertension Hypothyroidism In vitro fertilization 1992 Lumbar spine pain Lumbar spondylolysis Migraine Missed x1 Morbid (severe) obesity due to excess calories Neuropathy Numbness in both hands Obesity, morbid, BMI 40.0-49.9 DILIP (obstructive sleep apnea) Radiculopathy Screening for thyroid disorder Seasonal allergies Sinusitis Thoracic back pain Tubal x1 Upper back pain Vaginal delivery x1 Surgical History Surgical History History of dilation and curettage 1996 History of endometrial ablation 2007 History of laparoscopy x3 Previous section x1 S/P cryotherapy of skin lesion 1985, of cervix [place] teeth extracted 1985 Family History Family History Father Heart problem Acute myocardial infarction Mother Hypertension Grandparent Melanoma Hypertension Depression Heart problem Cerebrovascular accident Sibling Arrhythmia Social History Social History Smoking status: Never smoker Second hand tobacco smoke exposure: No Alcohol intake: never Substance use: never Substance use type: does not use Do You Feel Safe in your Home?: Yes Lack of Transportation: No Lack of Food: Never True Current Housing: I Have Housing Concerned About Future Housing: No Difficulty Paying Gas/Electric Bills: No Difficulty Paying for Meds: No Currently Unemployed: No Education: Master's Degree or Higher Difficulty w/ Childcare or Family Care: No Living arrangements: with family Occupation/Education: occupation 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 Gender identity (if verbalized by the patient): Female Spiritual care concerns: No Exam Narrative: GENERAL APPEARANCE: WELL-DEVELOPED, WELL-NOURISHED SKIN: NORMAL COLOR HEAD: NORMOCEPHALIC, NONTRAUMATIC EYES: CLEAR CONJUNCTIVA ENT: OROPHARYNX NORMAL, EARS NORMAL, NOSE NORMAL NECK: SUPPLE, NONTENDER CHEST AND RESPIRATORY: AIRWAY PAT
[2023-10-05] MEDS: HYDROmorphone HCL INJ (*CRX) 1 MG/ML SYR IM (15:59)
[2023-10-05] MEDS: ONDANSETRON HCL ODT 4 MG TABLET PO (15:59)
[2023-10-05 18:19] LABS: Basophils Percent Auto 0.4 % (0.2-1.2); Eosinophils Absolute Auto 0.1 K/mm3 (0-0.3); Eosinophils Percent Auto 0.9 % (0-4.4); Hematocrit 39.4 % (37.0-47.0); Hemoglobin 12.8 g/dL (12.0-15.0); Immature Granulocyte Absolute 0.02 K/mm3 (0.00-0.031); Immature Granulocyte Percent A 0.2 % (0-0.5); Lymphocytes Absolute Auto 0.98 K/mm3 (0.9-3.2); Lymphocytes Percent Auto 8.8 % (18.3-44.2); Mean Corpuscular HGB Conc 32.5 g/dl (32-36); Mean Corpuscular Hemoglobin 34.1 pg (26-34); Mean Corpuscular Volume 105.1 fl (80-100); Mean Platelet Volume 10.8 fl (7.4-10.4); Monocytes Absolute Auto 0.9 K/mm3 (0.1-0.6); Monocytes Percent Auto 8.4 % (2.6-8.5); Neutrophils Absolute Auto 9.1 K/mm3 (1.3-6.7); Neutrophils Percent Auto 81.3 % (45.5-73.1); Platelet Count Result 224 k/mm3 (150-375); Red Blood Count 3.75 M/mm3 (4.2-5.4); Red Cell Distribution Width 12.6 % (11.5-14.5); White Blood Count 11.1 K/mm3 (4.5-10.0)
[2023-10-05 18:30] LABS: Prothrombin Time 13.9 Seconds (11.1-14.7)
[2023-10-05 18:31] LABS: Partial Thromboplastin Time 28.5 Seconds (22.3-36.8)
[2023-10-05 18:34] LABS: Anion Gap 9 mmol/L (4-12); Blood Urea Nitrogen 23 mg/dL (7-17); Calcium 9.9 mg/dL (8.4-10.2); Carbon Dioxide 27 mmol/L (22-30); Chloride 101 mmol/L (98-107); Estimated CRCL calculation 61 ml/min; Estimated Glomerular Filt Rate 50; Glucose 104 mg/dL (65-110); Potassium 4.5 mmol/L (3.4-5.0); Sodium 137 mmol/L (137-145)
[2023-10-05] MEDS: HEPARIN SOD/D5W 100 UNITS/ML 25,000 UNITS/250 ML BAG 15 UNITS IV CONT (18:34)
[2023-10-05] MEDS: HYDROmorphone HCL INJ (*CRX) 1 MG/ML SYR 0.5 MG IV PUSH ×2 (18:39→22:22)
[2023-10-05 18:44] LABS: Platelet Estimate Adequate (Adequate); Schistocytes None Seen
[2023-10-05 18:45] LABS: Macrocytosis 1+ (NORMAL)
--- NOTE | 2023-10-05 20:20 | PC.NURSE ---
Report given to JESSENIA Tee at [facility] [address]. Patient refusing to sign transfer paperwork for [facility] stating that she is not going there. Patient and spouse currently trying to decided what other hospitals they would like us try. [facility] being cancelled for transfer at this time.
[2023-10-06 00:01] VITALS: BP 104/61; PULSE 88; RESP 18; O2SAT 94
[2023-10-06 00:42] LABS: Basophils Percent Auto 0.3 % (0.2-1.2); Eosinophils Absolute Auto 0.1 K/mm3 (0-0.3); Eosinophils Percent Auto 1.2 % (0-4.4); Hematocrit 37.9 % (37.0-47.0); Hemoglobin 12.5 g/dL (12.0-15.0); Immature Granulocyte Absolute 0.03 K/mm3 (0.00-0.031); Immature Granulocyte Percent A 0.3 % (0-0.5); Lymphocytes Absolute Auto 1.32 K/mm3 (0.9-3.2); Lymphocytes Percent Auto 11.3 % (18.3-44.2); Mean Corpuscular Hemoglobin 33.9 pg (26-34); Mean Corpuscular Volume 102.7 fl (80-100); Mean Platelet Volume 10.7 fl (7.4-10.4); Monocytes Percent Auto 8.6 % (2.6-8.5); Neutrophils Absolute Auto 9.1 K/mm3 (1.3-6.7); Neutrophils Percent Auto 78.3 % (45.5-73.1); Platelet Count Result 224 k/mm3 (150-375); Red Blood Count 3.69 M/mm3 (4.2-5.4); Red Cell Distribution Width 12.7 % (11.5-14.5); White Blood Count 11.6 K/mm3 (4.5-10.0)
[2023-10-06 00:56] LABS: Prothrombin Time 13.7 Seconds (11.1-14.7)
[2023-10-06 00:58] LABS: Partial Thromboplastin Time 106.1 Seconds (22.3-36.8)
== END 2023-10-06 00:47 | disposition short-term general hospital (02) ==
PROVIDERS: Emergency Provider Emergency Medicine; PCP Family Medicine
DX: I82.412 Acute embolism and thrombosis of left femoral vein (principal); I82.432 Acute embolism and thrombosis of left popliteal vein; I82.452 Acute embolism and thrombosis of left peroneal vein; I82.442 Acute embolism and thrombosis of left tibial vein; I82.462 Acute embolism and thrombosis of left calf muscular vein; I12.9 Hypertensive chronic kidney disease with stage 1 through stage 4 chronic kidney disease, or unspecified chronic kidney disease; N18.9 Chronic kidney disease, unspecified; E78.00 Pure hypercholesterolemia, unspecified; E03.9 Hypothyroidism, unspecified; E66.01 Morbid (severe) obesity due to excess calories; Z68.42 Body mass index [BMI] 45.0-49.9, adult; K21.9 Gastro-esophageal reflux disease without esophagitis; G62.9 Polyneuropathy, unspecified; G47.33 Obstructive sleep apnea (adult) (pediatric); Z86.2 Personal history of diseases of the blood and blood-forming organs and certain disorders involving the immune mechanism; Z86.16 Personal history of COVID-19
CPT/HCPCS: 36415; 72131; 73562; 73700; 80048; 85025; 85610; 85730; 93971; 96372; 96374; 96375; 96376; 99284; A9270; J1170; J1644

== ENCOUNTER 2025-03-05 10:19 | Outpatient (CLI) | payer OTHER, SELFPAY ==
--- NOTE | ~2025-03-05 | XR_ITS ---
XR lumbar spine 6V w bending Indication: M54.50 - Low back pain, unspecified Comparison: None Findings: No fracture identified, no subluxation flexion and extension, there is grade 1 retrolisthesis of L2 on L3. Severe loss of disc at L5-S1. Soft tissues unremarkable Impression: No acute abnormality. Reviewed, dictated and finalized at location P. Impression: No acute abnormality.
== END 2025-03-05 10:20 | disposition home or self-care (01) ==
PROVIDERS: PCP Family Medicine; Visit Provider Nurse Practitioner Family
DX: M54.50 Low back pain, unspecified (principal); M43.06 Spondylolysis, lumbar region
CPT/HCPCS: 72114